=== PATIENT | female | born 1940 | race Caucasian/White ===

== ENCOUNTER 2017-11-30 07:53 | Inpatient (IN) | payer MEDICARE ==
[2017-11-30] MEDS ORDERED: Piperacillin/Tazobactam 4.5 GM in Sodium Chloride 0.9% 100 ML IV ONE (08:31)
--- NOTE | 2017-11-30 08:41 | EDM.PDOC ---
ED HPI GENERAL MEDICAL PROBLEM - General Chief Complaint: Bite:Animal, Insect Stated Complaint: CAT BITE L ARM Time Seen by Provider: 11/30/17 08:08 Source of Information: Reports: Patient, Family () History Limitations: Reports: No Limitations - History of Present Illness INITIAL COMMENTS - FREE TEXT/NARRATIVE: The patient states that she was bitten on her left forearm by her cat in the automobile locator of , 11/28/2017. She was seen at the walk-in clinic yesterday morning around 10AM. The area of erythema around the Bite was pen demarcated. She received a tetanus vaccination and a prescription for oral doxycycline. She started the doxycycline around 13:00, and took her third dose this morning. Doxycycline was chosen because the patient sustained a cat bite to her right hand in 2011. At that time, she was started on oral Augmentin, but, according to the patient (medical records from that incident are not available to us at this time), the patient developed cholestatic jaundice and required hospitalization. She does not know what IV antibiotic she received during her hospitalization. The patient now presents because the swelling and erythema has extended beyond the area of the pen demarcation. The patient denies recent fever. While the wound is painful, there has not been any purulent drainage. The patient's PCP is Tran Gomes. Left Arm Pain Score (Numeric/FACES): 4 - Related Data Allergies Allergy/AdvReac Type Severity Reaction Status Date / Time bacitracin Allergy Cannot Verified 11/30/17 08:06 Remember brimonidine [From Alphagan P] Allergy Cardiac Verified 11/30/17 08:06 Arrest latex Allergy Itching Verified 11/30/17 08:06 neomycin Allergy Cannot Verified 11/30/17 08:06 [From Neosporin Remember ([id number])] polymyxin B Allergy Cannot Verified 11/30/17 08:06 [From Neosporin Remember ([id number])] Sulfa (Sulfonamide Allergy Itching Verified 11/30/17 08:06 Antibiotics) amoxicillin trihydrate AdvReac Liver Verified 11/30/17 08:06 [From Augmentin] Problems atorvastatin calcium AdvReac Muscle Verified 11/30/17 08:06 [From Lipitor] Aches potassium clavulanate AdvReac Liver Verified 11/30/17 08:06 [From Augmentin] Problems Home Meds: Home Meds Cholecalciferol (Vitamin D3) [Vitamin D3] 2,000 unit PO DAILY 07/31/16 [History] Levothyroxine Sodium 75 mcg PO DAILY 07/31/16 [History] Ubidecarenone/Vitamin E [Co Q-10 50 MG Softgel] 1 each PO DAILY 07/31/16 [ History] Verapamil [Calan SR] 120 mg PO DAILY 07/31/16 [History] Tiotropium [place] [Spiriva Respimat] 1 inh INH DAILY 10/22/16 [History] Aspirin [Ecotrin] 81 mg PO DAILY 11/30/17 [History] Denosumab [Prolia] 60 mg SQ ASDIRECTED 11/30/17 [History] Doxycycline Monohydrate 100 mg PO BID 11/30/17 [History] Montelukast [Singulair] 10 mg PO BEDTIME PRN 11/30/17 [History] Rosuvastatin Calcium 10 mg PO BEDTIME 11/30/17 [History] Vit C/E/Zinc/Lutein/Zeaxanthin [[employer] Eye Health Gummies] 1 tab.chew PO DAILY 11/30/17 [History] Past Medical History HEENT History: Reports: Impaired Vision Other HEENT History: wears eyeglasses. 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: Musculoskeletal History: Reports: Fracture (left wrist) Psychiatric History: Reports: Anxiety, Depression Endocrine/Metabolic History: Reports: Hypothyroidism, Vitamin D Deficiency - Past Surgical History HEENT Surgical History: Reports: Cataract Surgery (1993) Female Surgical History: Reports: Hysterectomy (1970) Musculoskeletal Surgical History: Reports: ORIF (left wrist), Other (See Below) (Right hand tendon repair x 4) Dermatological Surgical History: Reports: Other (See Below) Social & Family History - Family History Family Medical History: Noncontributory - Tobacco Use Smoking Status *Q: Former Smoker Years of Tobacco use: 44 Packs/Tins Daily: 0.5 Month/Year Tobacco Last Used: Quit 2005 - Caffeine Use Caffeine Use: Reports: None - Alcohol Use Alcohol Use History: Yes Alcohol Use Frequency: Socially - Recreational Drug Use Recreational Drug Use: No - Living Situation & Occupation Living situation: Reports: , with Spouse Occupation: Employed (Part-time) ED ROS GENERAL - Review of Systems Review Of Systems: ROS reveals no pertinent complaints other than HPI. ED EXAM, ANIMAL BITE - Physical Exam Exam: See Below Exam Limited By: No Limitations General Appearance: Alert, WD/WN, No Apparent Distress Extremities: Other (There is an area of rubor, tumor, and calor with associated dolor measuring approximately 11 cm wide and 9 cm in length over the dorsal aspect of the distal left forearm. Within the area of erythema/swelling, there are 2 puncture red consistent with a cat bite. No fluctuance to the area, and no purulence expressed with palpation.) Course - Vital Signs Last Recorded V/S: Last Vital Signs Temp 37.5 C 11/30/17 17:41 Pulse 65 11/30/17 17:33 Resp 20 11/30/17 17:33 BP 142/66 H 11/30/17 17:33 Pulse Ox 94 L 11/30/17 17:33 - Orders/Labs/Meds Orders: Medication Orders Acetaminophen (Tylenol) 650 mg PO Q6H PRN PRN Reason: Pain/Fever Aspirin (Halfprin) 81 mg PO DAILY [facility] Last Admin: 11/30/17 13:54 Dose: 81 mg Enoxaparin Sodium (Lovenox) 30 mg SUBCUT Q24H [facility] Piperacillin Sod/Tazobactam (Sod 4.5 gm/ Sodium Chloride) 100 mls @ 25 mls/hr IV Q6H [facility] Last Admin: 11/30/17 17:25 Dose: 25 mls/hr Levothyroxine Sodium (Levothyroxine) 75 mcg PO DAILY@0600 BRENDA Montelukast Sodium (Singulair) 10 mg PO BEDTIME PRN PRN Reason: Allergies Rosuvastatin Calcium (Crestor) 10 mg PO BEDTIME BRENDA Temazepam (Restoril) 7.5 mg PO BEDTIME PRN PRN Reason: Insomnia Tiotropium [place] (Spiriva Handihaler) 18 mcg INH DAILYRT BRENDA Verapamil HCl (Calan Sr) 120 mg PO DAILY [facility] Last Admin: 11/30/17 13:33 Dose: Meds: Medications Generic Name Dose Route Start Last Admin Trade Name Freq PRN Reason Stop Dose Admin Acetaminophen 650 mg 11/30/17 17:54 Tylenol PO Q6H PRN Pain/Fever Aspirin 81 mg 11/30/17 11:15 11/30/17 13:54 Halfprin PO 81 mg DAILY BRENDA Administration Enoxaparin Sodium 30 mg 12/01/17 09:00 Lovenox SUBCUT Q24H BRENAD Piperacillin Sod/Tazobactam 100 mls @ 25 mls/hr 11/30/17 17:00 11/30/17 17:25 Sod 4.5 gm/ Sodium Chloride IV 25 mls/hr Q6H BRENDA Administration Levothyroxine Sodium 75 mcg 12/01/17 06:00 Levothyroxine PO DAILY@0600 BRENDA Montelukast Sodium 10 mg 11/30/17 11:03 Singulair PO BEDTIME PRN Allergies Rosuvastatin Calcium 10 mg 11/30/17 21:00 Crestor PO BEDTIME BRENDA Temazepam 7.5 mg 11/30/17 17:54 Restoril PO BEDTIME PRN Insomnia Tiotropium [place] 18 mcg 12/01/17 08:00 Spiriva Handihaler INH DAILYRT BRENDA Verapamil HCl 120 mg 11/30/17 13:00 11/30/17 13:33 Calan Sr PO Not Given DAILY BRENDA Discontinued Medications Generic Name Dose Route Start Last Admin Trade Name Freq PRN Reason Stop Dose Admin Piperacillin Sod/Tazobactam 100 mls @ 200 mls/hr 11/30/17 08:31 11/30/17 08: 50 Sod 4.5 gm/ Sodium Chloride IV 11/30/17 09:00 200 mls/hr ONETIME ONE Administration - Re-Assessments/Exams Free Text/Narrative Re-Assessment/Exam: 11/30/17 08:34 While doxycycline it is an appropriate choice for the treatment of a cat bite, the severity of the infection at this point is, in my opinion, too severe to trust an oral antibiotic alone. I am recommending that she be admitted to the hospital for IV antibiotics until such time that there is demonstrable improvement in the infection, at which time she could then be switched back to oral doxycycline. The patient is agreeable. Case discussed with Dr. Littlejohn at 08:26. She agrees to admit the patient to telemetry. She asked that I call the surgeon, Dr. Montejo, to have her consult the patient early, so that she can watch the progress. Case then discussed with Dr. Montejo. She agreed, and will see the patient this morning. I have ordered Zosyn 4.5 g IV - cholestatic jaundice is not a listed potential adverse reaction. Current guidelines recommend 3.375 g Q 6 to 8 hours - only the 4.5 g dose is available to me at this time. Departure - Departure Time of Disposition: 08:35 Disposition: Admitted As Inpatient 68 Condition: Good Clinical Impression: Cat bite of left forearm with infection - Discharge Information
[2017-11-30] MEDS ORDERED: Montelukast 10 MG Tab PO PRN (11:03)
[2017-11-30] MEDS: Verapamil 120 MG Tab.ER PO SCH (13:33)
[2017-11-30] MEDS: Aspirin 81 MG Tab.EC PO SCH (13:54)
[2017-11-30] MEDS: Piperacillin/Tazobactam 4.5 GM in Sodium Chloride 0.9% 100 ML IV SCH ×2 (17:25→23:04)
--- NOTE | 2017-11-30 17:48 | PCM.HP ---
H&P History of Present Illness - General Date of Service: 11/30/17 Admit Problem/Dx: Admission Diagnosis/Problem Admission Diagnosis/Problem Cellulitis Source of Information: Patient, Provider History Limitations: Reports: No Limitations - History of Present Illness Initial Comments - Free Text/Narative: 77 year old female who was bitten by her cat, had been seen on , the day of the incidence. She denies fever or chills, there is swelling erythema and mild discomfort. She had been seen in the walk in clinic and started on Doxycycline but has failed outpatient therapy. The patient has received one dose of Zosyn, and will be admitted. A general surgery consult has been made for compartment syndrome. Onset of Symptoms: Reports: Gradual Symptom Onset Date: 11/28/17 Duration of Symptoms: Reports: Day(s):, Getting Worse Location: Reports: Lower Extremity, Left Quality: Reports: Throbbing Severity: Moderate Improves with: Reports: Medication Worsens with: Reports: None Context: Reports: Other (animal bite) Associated Symptoms: Reports: Weakness Left Arm Pain Score (Numeric/FACES): 1 - Related Data Allergies/Adverse Reactions: Allergies Allergy/AdvReac Type Severity Reaction Status Date / Time bacitracin Allergy Cannot Verified 11/30/17 08:06 Remember brimonidine [From Alphagan P] Allergy Cardiac Verified 11/30/17 08:06 Arrest latex Allergy Itching Verified 11/30/17 08:06 neomycin Allergy Cannot Verified 11/30/17 08:06 [From Neosporin Remember ([id number])] polymyxin B Allergy Cannot Verified 11/30/17 08:06 [From Neosporin Remember ([id number])] Sulfa (Sulfonamide Allergy Itching Verified 11/30/17 08:06 Antibiotics) amoxicillin trihydrate AdvReac Liver Verified 11/30/17 08:06 [From Augmentin] Problems atorvastatin calcium AdvReac Muscle Verified 11/30/17 08:06 [From Lipitor] Aches potassium clavulanate AdvReac Liver Verified 11/30/17 08:06 [From Augmentin] Problems Home Medications: Home Meds Cholecalciferol (Vitamin D3) [Vitamin D3] 2,000 unit PO DAILY 07/31/16 [History] Levothyroxine Sodium 75 mcg PO DAILY 07/31/16 [History] Ubidecarenone/Vitamin E [Co Q-10 50 MG Softgel] 1 each PO DAILY 07/31/16 [ History] Verapamil [Calan SR] 120 mg PO DAILY 07/31/16 [History] Tiotropium [place] [Spiriva Respimat] 1 inh INH DAILY 10/22/16 [History] Aspirin [Ecotrin] 81 mg PO DAILY 11/30/17 [History] Denosumab [Prolia] 60 mg SQ ASDIRECTED 11/30/17 [History] Doxycycline Monohydrate 100 mg PO BID 11/30/17 [History] Montelukast [Singulair] 10 mg PO BEDTIME PRN 11/30/17 [History] Rosuvastatin Calcium 10 mg PO BEDTIME 11/30/17 [History] Vit C/E/Zinc/Lutein/Zeaxanthin [[employer] Eye Health Gummies] 1 tab.chew PO DAILY 11/30/17 [History] Past Medical History HEENT History: Reports: Impaired Vision Other HEENT History: wears eyeglasses. 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 Dermatological Surgical History: Reports: Other (See Below) Social & Family History - Family History Family Medical History: Noncontributory - Tobacco Use Smoking Status *Q: Former Smoker Years of Tobacco use: 40 Packs/Tins Daily: 1 Used Tobacco, but Quit: Yes Month/Year Tobacco Last Used: 1999 Second Hand Smoke Exposure: No - Caffeine Use Caffeine Use: Reports: Coffee, Tea - Alcohol Use Days Per Week of Alcohol Use: 1 Number of Drinks Per Day: 1 Total Drinks Per Week: 1 - Recreational Drug Use Recreational Drug Use: No - Living Situation & Occupation Living situation: Reports: , with Spouse Occupation: Employed (Part-time) H&P Review of Systems - Review of Systems: Review Of Systems: See Below General: Reports: Malaise, Weakness HEENT: Reports: No Symptoms Pulmonary: Reports: No Symptoms Cardiovascular: Reports: No Symptoms Gastrointestinal: Reports: No Symptoms Genitourinary: Reports: No Symptoms Musculoskeletal: Reports: Arm Pain (left forearm) Skin: Reports: Erythema, Wound (bite), Change in Color, Other (edema) Psychiatric: Reports: No Symptoms Neurological: Reports: No Symptoms Hematologic/Lymphatic: Reports: No Symptoms Immunologic: Reports: No Symptoms Exam - Exam Exam: See Below - Vital Signs Vital Signs: Last Vital Signs Temp 37.5 C 11/30/17 17:41 Pulse 65 11/30/17 17:33 Resp 20 11/30/17 17:33 BP 142/66 H 11/30/17 17:33 Pulse Ox 94 L 11/30/17 17:33 Weight: 51.483 kg - Exam Quality Assessment: DVT Prophylaxis General: Alert, Oriented, Cooperative HEENT: Conjunctiva Clear, Nares Patent, Normal Nasal Septum, Pupils Equal, Pupils Reactive, PERRLA Neck: Supple, Trachea Midline Lungs: Clear to Auscultation, Normal Respiratory Effort Cardiovascular: Regular Rate, Regular Rhythm GI/Abdominal Exam: Normal Bowel Sounds, Soft, Non-Tender, No Organomegaly, No Distention (Female) Exam: Deferred Rectal (Female) Exam: Deferred Back Exam: Normal Inspection Extremities: Normal Inspection, Non-Tender, Normal Capillary Refill Skin: Warm Neurological: Cranial Nerves Intact, Reflexes Equal Bilateral, Normal Gait, Normal Speech Neuro Extensive - Mental Status: Alert, Oriented x3, Normal Mood/Affect, Normal Cognition, Memory Intact Neuro Extensive - Motor, Sensory, Reflexes: CN II-XII Intact, Normal Gait Psychiatric: Alert, Normal Affect, Normal Mood - Problem List (1) Cat bite of left forearm with infection SNOMED Code(s): 862854931 ICD Code: S51.852A - OPEN BITE OF LEFT FOREARM, INITIAL ENCOUNTER; L08.9 - LOCAL INFECTION OF THE SKIN AND SUBCUTANEOUS TISSUE, UNSP; W55.01XA - BITTEN BY CAT, INITIAL ENCOUNTER Status: Acute Current Visit: No Problem List Initiated/Reviewed/Updated: Yes Orders Last 24hrs: Active Orders 24 hr Category Date Time Status Admission Status [Patient Status] [ADT] Routine ADT 11/30/17 10:43 Active Heart Healthy Diet [DIET] Diet 11/30/17 Dinner Active Aspirin [Halfprin] Med 11/30/17 11:15 Active 81 mg PO DAILY Levothyroxine Med 12/01/17 06:00 Active 75 mcg PO DAILY@0600 Montelukast [Singulair] Med 11/30/17 11:03 Active 10 mg PO BEDTIME PRN Piperacillin/Tazobactam [Zosyn] 4.5 gm Med 11/30/17 17:00 Active Sodium Chloride 0.9% [Normal Saline] 100 ml IV Q6H Rosuvastatin [Crestor] Med 11/30/17 21:00 Active 10 mg PO BEDTIME Tiotropium [Spiriva HandiHaler] Med 12/01/17 08:00 Active 18 mcg INH DAILYRT Verapamil [Calan SR] Med 11/30/17 13:00 Active 120 mg PO DAILY Resuscitation Status Routine Resus Stat 11/30/17 13:46 Ordered Medication Orders Aspirin (Halfprin) 81 mg PO DAILY [facility] Last Admin: 11/30/17 13:54 Dose: 81 mg Piperacillin Sod/Tazobactam (Sod 4.5 gm/ Sodium Chloride) 100 mls @ 25 mls/hr IV Q6H BRENDA Last Admin: 11/30/17 17:25 Dose: 25 mls/hr Levothyroxine Sodium (Levothyroxine) 75 mcg PO DAILY@0600 BRENDA Montelukast Sodium (Singulair) 10 mg PO BEDTIME PRN PRN Reason: Allergies Rosuvastatin Calcium (Crestor) 10 mg PO BEDTIME BRENDA Tiotropium [place] (Spiriva Handihaler) 18 mcg INH DAILYRT BRENDA Verapamil HCl (Calan Sr) 120 mg PO DAILY BRENDA Last Admin: 11/30/17 13:33 Dose: Assessment/Plan Comment:: Impression: Trauma-->s/p cat bite, family cat No signs of compartment syndrome, started on Zosyn Augmentin complication per patient cholestatic jaundice Chronic HTBN HLD COPD Anxiety/Depression Hypothyroidism Vitamin D deficiency Plan: General surgery consult Continue Zosyn Elevate LUE Pain meds as needed IVF DVT prophylaxis DC 24-48 hours
[2017-11-30] MEDS ORDERED: Temazepam 7.5 MG Cap PO PRN (17:54)
--- NOTE | 2017-11-30 18:00 | CONS ---
CONSULTING PHYSICIAN: Rosalba Montejo MD DATE OF CONSULTATION: 11/30/2017 CHIEF COMPLAINT: Left forearm cat bite. HISTORY OF PRESENT ILLNESS: Fabi Cabrera is just a pleasant 77-year-old female; yesterday in the middle of the night, her cat was frightened and subsequently jumped and bit her on the left forearm. She had initially discomfort but then started noticing some redness. She was subsequently seen as an outpatient, antibiotics and tetanus were given. Over the course of the last several hours, however, the swelling increased. She denies any fevers or chills and she denies any decrease in her range of motion or pain with range of motion of her elbow, wrist, or fingers. She states she can move it well. It is just that the redness that is increased. PAST MEDICAL HISTORY: Significant in her past medical history, she has also had a previous cat bite that was many years ago, on her right arm, which required multiple debridements. ALLERGIES: Latex and Augmentin. The Augmentin was noted when she was treated for the other cat bite because it gave her cholestatic jaundice from what we could tell. SOCIAL HISTORY: Smoking: She quit many years ago. Alcohol: Rare. She is . She has 2 children alive and well. PAST SURGICAL HISTORY: Hysterectomy and she has had cataracts and she had the right arm reconstruction. REVIEW OF SYSTEMS: No history of seizures or strokes. No history of blurred or double vision. No history of shortness of breath or chest pain. No history of abdominal pain or tenderness or nausea or vomiting. No history of blood in her urine or any other joint pain or tenderness. MEDICATIONS: Her medications, I did review, and they are on her chart. PHYSICAL EXAMINATION: GENERAL: This is a very young appearing 77-year-old female. HEENT: Pupils are equal. NECK: Without mass. LUNGS: Clear. HEART: Rhythm is regular. EXTREMITIES: On her left forearm is an area that has been marked. There are 3 little puncture wounds noted. There is no subcutaneous air and there is full range of motion of her elbow, wrist, and her fingers. There is no active drainage. There is some swelling but it appears to be superficial. The areas where the entrance of the teeth are with a small amount of necrosis, probably about 0.2 mm. IMPRESSION AND PLAN: She has localized cellulitis from the cat bite. I concur that at this point in time, we can simply start IV antibiotics and watch this closely. If indeed the cellulitis does not respond, I would then have to reassess for possible drainage and debridement. There are no signs of tendon involvement and there are no signs of compartment syndrome at this point in time. The patient is pleased with this and will continue with warm packs, elevation, and antibiotics. The total time of this consultation with the patient and with the chart review was probably about 28 minutes. I have also discussed with Dr. Littlejohn, our plan and she concurs. MMODAL /[id number]
[2017-11-30] MEDS: Rosuvastatin 10 MG Tab PO SCH (20:46)
[2017-12-01] MEDS: Levothyroxine 75 MCG Tab PO SCH (06:36)
[2017-12-01] MEDS ORDERED: Magnesium Sulfate/Water 2 GM in Premix Bag 1 BAG IV ONE (07:42)
--- NOTE | 2017-12-01 08:27 | PCM.PN ---
- General Info Date of Service: 12/01/17 Admission Dx/Problem (Free Text): Admission Diagnosis/Problem Admission Diagnosis/Problem Cellulitis Subjective Update: Follow Up Functional Status: Reports: Pain Controlled, Tolerating Diet, Ambulating, Urinating. Denies: New Symptoms - Review of Systems General: Denies: Fever, Weakness, Fatigue, Malaise, Chills HEENT: Reports: Headaches (early this morning but went away) Pulmonary: Reports: No Symptoms Cardiovascular: Reports: No Symptoms Gastrointestinal: Denies: Abdominal Pain, Constipation, Diarrhea, Nausea, Vomiting Genitourinary: Reports: No Symptoms Musculoskeletal: Reports: No Symptoms Skin: Reports: Other (lesions on arm: continue to improve per patient). Denies : Cyanosis, Mottled, Diaphoresis, Rash Neurological: Denies: Confusion, Difficulty Walking, Weakness, Gait Disturbance Psychiatric: Denies: Depression, Anxiety, Agitation, Hallucinations Systems Review Comment:: No overnight or acute issues. She slept pretty good. She has a headache this am but went away. She has no new complaints. - Patient Data Vitals - Most Recent: Last Vital Signs Temp 36.7 C 12/01/17 03:40 Pulse 62 12/01/17 03:40 Resp 16 12/01/17 03:40 BP 112/61 12/01/17 03:40 Pulse Ox 92 L 12/01/17 03:40 Weight - Most Recent: 50.893 kg I&O - Last 24 Hours: Intake & Output 11/30/17 12/01/17 12/01/17 22:59 06:59 14:59 Intake Total 860 500 Output Total 200 450 Balance 660 50 Lab Results Last 24 Hours: Laboratory Results - last 24 hr 11/30/17 11/30/17 12/01/17 Range/Units 20:00 20:00 06:05 WBC 9.13 7.48 (3.98-10.04) K/mm3 RBC 4.68 4.67 (3.98-5.22) M/mm3 Hgb 14.4 14.6 (11.2-15.7) gm/L Hct 43.2 43.0 (34.1-44.9) % MCV 92.3 92.1 (79.4-94.8) fl MCH 30.8 31.3 (25.6-32.2) pg MCHC 33.3 34.0 (32.2-35.5) g/dl RDW Std Deviation 44.6 44.6 (36.4-46.3) fL Plt Count 289 304 (182-369) K/mm3 MPV 8.6 L 9.0 L (9.4-12.3) fl Neut % (Auto) 68.6 69.9 (34.0-71.1) % Lymph % (Auto) 20.8 19.0 L (19.3-51.7) % [place] % (Auto) 8.7 9.0 (4.7-12.5) % Eos % (Auto) 1.4 1.7 (0.7-5.8) Baso % (Auto) 0.4 0.3 (0.1-1.2) % Neut # (Auto) 6.26 H 5.23 (1.56-6.13) K/mm3 Lymph # (Auto) 1.90 1.42 (1.18-3.74) K/mm3 [place] # (Auto) 0.79 H 0.67 H (0.24-0.36) K/mm3 Eos # (Auto) 0.13 0.13 (0.04-0.36) K/mm3 Baso # (Auto) 0.04 0.02 (0.01-0.08) K/mm3 Sodium 142 (136-145) mEq/L Potassium 3.9 (3.5-5.1) mEq/L Chloride 108 H (98-107) mEq/L Carbon Dioxide 25 (21-32) mEq/L Anion Gap 12.9 (5-15) BUN 16 (7-18) mg/dL Creatinine 0.8 (0.55-1.02) mg/dL Est Cr Clr Drug Dosing 48.06 mL/min Estimated GFR (MDRD) > 60 (>60) mL/min BUN/Creatinine Ratio 20.0 H (14-18) Glucose 132 H (83-115) mg/dL Lactic Acid (0.4-2.0) mmol/L Calcium 9.0 (8.5-10.1) mg/dL Magnesium (1.8-2.4) mg/dl C-Reactive Protein (<1.0) mg/dL 12/01/17 12/01/17 Range/Units 06:05 06:05 WBC (3.98-10.04) K/mm3 RBC (3.98-5.22) M/mm3 Hgb (11.2-15.7) gm/L Hct (34.1-44.9) % MCV (79.4-94.8) fl MCH (25.6-32.2) pg MCHC (32.2-35.5) g/dl RDW Std Deviation (36.4-46.3) fL Plt Count (182-369) K/mm3 MPV (9.4-12.3) fl Neut % (Auto) (34.0-71.1) % Lymph % (Auto) (19.3-51.7) % [place] % (Auto) (4.7-12.5) % Eos % (Auto) (0.7-5.8) Baso % (Auto) (0.1-1.2) % Neut # (Auto) (1.56-6.13) K/mm3 Lymph # (Auto) (1.18-3.74) K/mm3 [place] # (Auto) (0.24-0.36) K/mm3 Eos # (Auto) (0.04-0.36) K/mm3 Baso # (Auto) (0.01-0.08) K/mm3 Sodium 140 (136-145) mEq/L Potassium 3.7 (3.5-5.1) mEq/L Chloride 104 (98-107) mEq/L Carbon Dioxide 26 (21-32) mEq/L Anion Gap 13.7 (5-15) BUN 15 (7-18) mg/dL Creatinine 0.8 (0.55-1.02) mg/dL Est Cr Clr Drug Dosing 48.06 mL/min Estimated GFR (MDRD) > 60 (>60) mL/min BUN/Creatinine Ratio 18.8 H (14-18) Glucose 91 (83-115) mg/dL Lactic Acid 0.7 (0.4-2.0) mmol/L Calcium 8.5 (8.5-10.1) mg/dL Magnesium 1.6 L (1.8-2.4) mg/dl C-Reactive Protein 0.6 (<1.0) mg/dL Med Orders - Current: Current Medications Acetaminophen (Tylenol) 650 mg PO Q6H PRN PRN Reason: Pain/Fever Aspirin (Halfprin) 81 mg PO DAILY [facility] Last Admin: 11/30/17 13:54 Dose: 81 mg Enoxaparin Sodium (Lovenox) 30 mg SUBCUT Q24H [facility] Piperacillin Sod/Tazobactam (Sod 4.5 gm/ Sodium Chloride) 100 mls @ 25 mls/hr IV Q8H [facility] Magnesium Sulfate 2 gm/ Premix 50 mls @ 25 mls/hr IV ONETIME ONE Stop: 12/01/17 09:41 Levothyroxine Sodium (Levothyroxine) 75 mcg PO DAILY@0600 [facility] Last Admin: 12/01/17 06:36 Dose: 75 mcg Montelukast Sodium (Singulair) 10 mg PO BEDTIME PRN PRN Reason: Allergies Rosuvastatin Calcium (Crestor) 10 mg PO BEDTIME [facility] Last Admin: 11/30/17 20:46 Dose: 10 mg Temazepam (Restoril) 7.5 mg PO BEDTIME PRN PRN Reason: Insomnia Tiotropium [place] (Spiriva Handihaler) 18 mcg INH DAILYRT [facility] Verapamil HCl (Calan Sr) 120 mg PO DAILY [facility] Last Admin: 11/30/17 13:33 Dose: Not Given Discontinued Medications Piperacillin Sod/Tazobactam (Sod 4.5 gm/ Sodium Chloride) 100 mls @ 200 mls/hr IV ONETIME ONE Stop: 11/30/17 09:00 Last Admin: 11/30/17 08:50 Dose: 200 mls/hr Piperacillin Sod/Tazobactam (Sod 4.5 gm/ Sodium Chloride) 100 mls @ 25 mls/hr IV Q6H [facility] Last Admin: 11/30/17 23:04 Dose: 25 mls/hr - Exam General: Alert, Oriented, Cooperative, No Acute Distress HEENT: Pupils Equal, Pupils Reactive, EOMI, Mucous Membr. Moist/[place] Neck: Supple, Trachea Midline Lungs: Clear to Auscultation, Normal Respiratory Effort Cardiovascular: Regular Rate, Regular Rhythm GI/Abdominal Exam: Normal Bowel Sounds, Soft, Non-Tender, No Organomegaly, No Distention, No Abnormal Bruit (Female) Exam: Deferred Back Exam: Normal Inspection, Full Range of Motion Extremities: Normal Inspection, Normal Range of Motion, Non-Tender, No Pedal Edema, Normal Capillary Refill Peripheral Pulses: 2+: Dorsalis Pedis (L), Dorsalis Pedis (R) Skin: Warm, Dry, Intact Wound/Incisions: Healing Well, No Drainage, Erythema Improving Neurological: No New Focal Deficit Psy/Mental Status: Alert, Normal Affect, Normal Mood - Problem List Review Problem List Initiated/Reviewed/Updated: Yes - Plan Plan:: Assessment/Plan: Acute: SST/Cellulitis, Continues to Improve - 2/2 Cat bite, family cat - Cat up-to-date with vaccines - Per patient she received tetanus shot at the clinic - Was treated with Augmentin but developed cholestatic jaundice - She is responding to IV Zosyn - Dr. Montejo following; she okayed d/c in AM continue home dose doxycycline Hypomagnesemia - Mg 1.6 - 2.2 inadequate intake - Replete and monitor Chronic: HTN HLD COPD Anxiety/Depression Hypothyroidism Vitamin D deficiency Plan: She remains clinically stable Continue current treatment Probiotic if she is not on it Dr. Montejo following Pain meds as needed DVT prophylaxis: SCDs D/C in AM
[2017-12-01] MEDS: Piperacillin/Tazobactam 4.5 GM in Sodium Chloride 0.9% 100 ML IV SCH ×2 (08:43→15:30)
[2017-12-01] MEDS: Aspirin 81 MG Tab.EC PO SCH (08:45)
[2017-12-01] MEDS: Verapamil 120 MG Tab.ER PO SCH (08:45)
[2017-12-01] MEDS ORDERED: Enoxaparin 30 MG/0.3 ML Syringe SUBCUT SCH (09:00)
[2017-12-01] MEDS: Tiotropium Inhaler 18 MCG Inhalation Powder Cap Kit of 5 INH SCH (09:07)
--- NOTE | 2017-12-01 12:38 | PN ---
DATE OF SERVICE: 12/01/2017 This is a surgical followup. SUBJECTIVE: She is now post 24 hours of IV antibiotics status post cat bite to the left forearm. She states she feels much better and has very little pain if any. She has remained afebrile. OBJECTIVE: The cellulitis of the left forearm has significantly decreased. You can actually see wrinkling of the skin. There are 2 areas where the entrance of the tooth of the cat, shows that there might be just a little purulence or little drainage starting, but this is not clinically obvious at this time. IMPRESSION: She continues to respond to the IV antibiotics for the cellulitis status post cat bite. I would recommend that she continue with antibiotics and local care only. PLAN: I explained to the patient that, perhaps at the 2 entrance sites of the teeth, there may be a little tiny abscess formation forming and if so, that should be just drained with just a little pressure. Otherwise, I see that she has steadily improved. There is no need for surgical debridement, and there are no signs of need for surgery at this time. Total time was less than 15 minutes. It was brief. MMODAL /[id number]
[2017-12-01] MEDS: Acetaminophen 325 MG Tab PO PRN ×2 (15:34→21:09)
[2017-12-01] MEDS: Rosuvastatin 10 MG Tab PO SCH (19:44)
[2017-12-02] MEDS: Rosuvastatin 10 MG Tab PO SCH (01:37)
[2017-12-02] MEDS: Piperacillin/Tazobactam 4.5 GM in Sodium Chloride 0.9% 100 ML IV SCH ×2 (01:43→08:15)
[2017-12-02] MEDS: Levothyroxine 75 MCG Tab PO SCH (06:09)
--- NOTE | 2017-12-02 07:16 | PCM.DCSUM1 ---
Discharge Summary - Hospital Course Brief History: 77 year old female who was bitten by her cat, had been seen on , 11/28/17 the day of the incidence. She denies fever or chills, there is swelling erythema and mild discomfort. She had been seen in the walk in clinic and started on Doxycycline but has failed outpatient therapy. The patient had received one dose of Zosyn and was admitted for inpatient management. - Discharge Data Discharge Date: 12/02/17 Discharge Disposition: Home, Self-Care 01 Condition: Good - Discharge Diagnosis/Problem(s) (1) Cat bite of left forearm with infection SNOMED Code(s): 432642480 ICD Code: S51.852A - OPEN BITE OF LEFT FOREARM, INITIAL ENCOUNTER; L08.9 - LOCAL INFECTION OF THE SKIN AND SUBCUTANEOUS TISSUE, UNSP; W55.01XA - BITTEN BY CAT, INITIAL ENCOUNTER Status: Acute Qualifiers: Encounter type: subsequent encounter Qualified Code(s): S51.852D - Open bite of left forearm, subsequent encounter; L08.9 - Local infection of the skin and subcutaneous tissue, unspecified; W55.01XD - Bitten by cat, subsequent encounter (2) Hypomagnesemia SNOMED Code(s): 305346948 ICD Code: E83.42 - HYPOMAGNESEMIA Status: Acute - Patient Summary/Data Operative Procedure(s) Performed: None Complications: None Consults: Dr. Montejo Labs Pending at D/C: None Recommended Follow-up Testing/Procedures: None Planned Operative Procedure(s) after DC: None Hospital Course: Patient was primarily admitted for medical management of cellulitis/ssti 2/2 cat bite. She was initially treated but failed outpatient treatment. Therefore, she presented to the hospital for inpatient treatment. Patient received intravenous antibiotic and supportive care during this admission. Slowly, she improved on this regimen. Dr. Montejo was consulted for surgical evaluation but recommended no additional testing or invasive treatment. Her hospital course was uncomplicated and the rest of her chronic medical illness remained stable. Once medically stable, she was discharged home to continue with her home doxycycline regimen. She was advised to follow up or call her PCP for any questions or concerns after discharge. She was further advised to come back or seek immediate care should her symptoms persist or get worse. Patient expressed understanding and in agreement with the plans as discussed above. All questions were answered. - Patient Instructions Diet: Usual Diet as Tolerated Activity: As Tolerated Driving: May Drive Today Showering/Bathing: May Shower Wound/Incision Care: Keep Operative Site/Wound Site Clean and Dry Notify Provider of: Fever, Increased Pain, Swelling and Redness, Drainage, Nausea and/or Vomiting Other/Special Instructions: - Please take new medication as directed. - Resume all home medications. - Continue routine home activities as tolerated. - Call your family doctor for any questions or concerns after discharge. - Follow up with PCP and General Surgery in 1-2 week. - Come back or seek immediate care should your symptoms persist or get worse - Discharge Plan Prescriptions/Med Rec: Saccharomyces Boulardii [Florastor] 250 mg PO BID #30 cap Home Medications: Home Meds Cholecalciferol (Vitamin D3) [Vitamin D3] 2,000 unit PO DAILY 07/31/16 [History] Levothyroxine Sodium 75 mcg PO DAILY 07/31/16 [History] Ubidecarenone/Vitamin E [Co Q-10 50 MG Softgel] 1 each PO DAILY 07/31/16 [ History] Verapamil [Calan SR] 120 mg PO DAILY 07/31/16 [History] Tiotropium [place] [Spiriva Respimat] 1 inh INH DAILY 10/22/16 [History] Aspirin [Ecotrin] 81 mg PO DAILY 11/30/17 [History] Denosumab [Prolia] 60 mg SQ ASDIRECTED 11/30/17 [History] Doxycycline Monohydrate 100 mg PO BID 11/30/17 [History] Montelukast [Singulair] 10 mg PO BEDTIME PRN 11/30/17 [History] Rosuvastatin Calcium 10 mg PO BEDTIME 11/30/17 [History] Vit C/E/Zinc/Lutein/Zeaxanthin [Ocuvite Eye Health Gummies] 1 tab.chew PO DAILY 11/30/17 [History] Saccharomyces Boulardii [Florastor] 250 mg PO BID #30 cap 12/02/17 [Rx] Patient Handouts: Cellulitis, Adult, Hypomagnesemia Referrals: Leti Gomes NP [Primary Care Provider] - 12/11/17 7:45 am (Please follow- up with your primary care doctor, Dr. Leti Gomes, on SaturdayDecember 11 at 0745am. ) - Discharge Summary/Plan Comment DC Time >30 min.: Yes (45 mins) Discharge Summary/Plan Comment: Discharge to Home - General Info Date of Service: 12/02/17 Admission Dx/Problem (Free Text: Admission Diagnosis/Problem Admission Diagnosis/Problem Cellulitis Subjective Update: Follow Up Functional Status: Reports: Pain Controlled, Tolerating Diet, Ambulating, Urinating - Review of Systems General: Denies: Fever, Weakness, Fatigue, Malaise, Chills HEENT: Reports: No Symptoms Pulmonary: Denies: Shortness of Breath Cardiovascular: Denies: Chest Pain, Palpitations, Dyspnea on Exertion Gastrointestinal: Denies: Abdominal Pain, Nausea, Vomiting Genitourinary: Reports: No Symptoms Musculoskeletal: Reports: Other (no limitations with ROM). Denies: Arm Pain, Joint Swelling Skin: Denies: Cyanosis, Jaundice, Mottled, Pallor, Diaphoresis, Bruising, Rash Neurological: Denies: Confusion, Difficulty Walking, Weakness, Gait Disturbance Psychiatric: Denies: Depression, Anxiety, Agitation, Hallucinations Systems Review Comment: NO overnight or acute issues. She slept pretty good. She feels good and has no complaints this morning. - Patient Data Vitals - Most Recent: Last Vital Signs Temp 37.7 C 12/01/17 15:17 Pulse 63 12/01/17 15:17 Resp 15 12/01/17 15:17 BP 129/67 12/01/17 15:17 Pulse Ox 93 L 12/01/17 15:17 Weight - Most Recent: 50.893 kg I&O - Last 24 hours: Intake & Output 12/01/17 12/02/17 12/02/17 22:59 06:59 14:59 Intake Total 1340 Output Total 1800 Balance -460 Lab Results - Last 24 hrs: Laboratory Results - last 24 hr 12/01/17 12/01/17 12/02/17 Range/Units 06:05 06:05 05:50 WBC 7.65 (3.98-10.04) K/mm3 RBC 4.90 (3.98-5.22) M/mm3 Hgb 15.0 (11.2-15.7) gm/L Hct 45.2 H (34.1-44.9) % MCV 92.2 (79.4-94.8) fl MCH 30.6 (25.6-32.2) pg MCHC 33.2 (32.2-35.5) g/dl RDW Std Deviation 44.7 (36.4-46.3) fL Plt Count 302 (182-369) K/mm3 MPV 8.9 L (9.4-12.3) fl Neut % (Auto) 71.7 H (34.0-71.1) % Lymph % (Auto) 17.0 L (19.3-51.7) % [place] % (Auto) 8.8 (4.7-12.5) % Eos % (Auto) 2.0 (0.7-5.8) Baso % (Auto) 0.4 (0.1-1.2) % Neut # (Auto) 5.49 (1.56-6.13) K/mm3 Lymph # (Auto) 1.30 (1.18-3.74) K/mm3 [place] # (Auto) 0.67 H (0.24-0.36) K/mm3 Eos # (Auto) 0.15 (0.04-0.36) K/mm3 Baso # (Auto) 0.03 (0.01-0.08) K/mm3 Sodium 140 (136-145) mEq/L Potassium 3.7 (3.5-5.1) mEq/L Chloride 104 (98-107) mEq/L Carbon Dioxide 26 (21-32) mEq/L Anion Gap 13.7 (5-15) BUN 15 (7-18) mg/dL Creatinine 0.8 (0.55-1.02) mg/dL Est Cr Clr Drug Dosing 48.06 mL/min Estimated GFR (MDRD) > 60 (>60) mL/min BUN/Creatinine Ratio 18.8 H (14-18) Glucose 91 (83-115) mg/dL Lactic Acid 0.7 (0.4-2.0) mmol/L Calcium 8.5 (8.5-10.1) mg/dL Magnesium 1.6 L (1.8-2.4) mg/dl C-Reactive Protein 0.6 (<1.0) mg/dL 12/02/17 12/02/17 Range/Units 05:50 05:50 WBC (3.98-10.04) K/mm3 RBC (3.98-5.22) M/mm3 Hgb (11.2-15.7) gm/L Hct (34.1-44.9) % MCV (79.4-94.8) fl MCH (25.6-32.2) pg MCHC (32.2-35.5) g/dl RDW Std Deviation (36.4-46.3) fL Plt Count (182-369) K/mm3 MPV (9.4-12.3) fl Neut % (Auto) (34.0-71.1) % Lymph % (Auto) (19.3-51.7) % [place] % (Auto) (4.7-12.5) % Eos % (Auto) (0.7-5.8) Baso % (Auto) (0.1-1.2) % Neut # (Auto) (1.56-6.13) K/mm3 Lymph # (Auto) (1.18-3.74) K/mm3 [place] # (Auto) (0.24-0.36) K/mm3 Eos # (Auto) (0.04-0.36) K/mm3 Baso # (Auto) (0.01-0.08) K/mm3 Sodium 144 (136-145) mEq/L Potassium 4.1 (3.5-5.1) mEq/L Chloride 107 (98-107) mEq/L Carbon Dioxide 25 (21-32) mEq/L Anion Gap 16.1 H (5-15) BUN 18 (7-18) mg/dL Creatinine 0.8 (0.55-1.02) mg/dL Est Cr Clr Drug Dosing 48.06 mL/min Estimated GFR (MDRD) > 60 (>60) mL/min BUN/Creatinine Ratio 22.5 H (14-18) Glucose 100 (83-115) mg/dL Lactic Acid 0.8 (0.4-2.0) mmol/L Calcium 8.8 (8.5-10.1) mg/dL Magnesium 2.1 (1.8-2.4) mg/dl C-Reactive Protein 0.6 (<1.0) mg/dL Med Orders - Current: Current Medications Acetaminophen (Tylenol) 650 mg PO Q6H PRN PRN Reason: Pain/Fever Last Admin: 12/01/17 21:09 Dose: 650 mg Aspirin (Halfprin) 81 mg PO DAILY [facility] Last Admin: 12/01/17 08:45 Dose: 81 mg Enoxaparin Sodium (Lovenox) 40 mg SUBCUT DAILY [facility] Piperacillin Sod/Tazobactam (Sod 4.5 gm/ Sodium Chloride) 100 mls @ 25 mls/hr IV Q8H [facility] Last Admin: 12/02/17 01:43 Dose: 25 mls/hr Levothyroxine Sodium (Levothyroxine) 75 mcg PO DAILY@0600 [facility] Last Admin: 12/02/17 06:09 Dose: 75 mcg Montelukast Sodium (Singulair) 10 mg PO BEDTIME PRN PRN Reason: Allergies Rosuvastatin Calcium (Crestor) 10 mg PO BEDTIME [facility] Last Admin: 12/02/17 01:37 Dose: Not Given Saccharomyces Boulardii (Florastor) 250 mg PO DAILY [facility] Temazepam (Restoril) 7.5 mg PO BEDTIME PRN PRN Reason: Insomnia Tiotropium [place] ([facility]iva Handihaler[facility] Last Admin: 12/01/17 09:07 Dose: 1 cap Verapamil HCl (Calan Sr) 120 mg PO DAILY [facility] Last Admin: 12/01/17 08:45 Dose: 120 mg Discontinued Medications Enoxaparin Sodium (Lovenox) 30 mg SUBCUT Q24H [facility] Last Admin: 12/01/17 08:46 Dose: 30 mg Piperacillin Sod/Tazobactam (Sod 4.5 gm/ Sodium Chloride) 100 mls @ 200 mls/hr IV ONETIME ONE Stop: 11/30/17 09:00 Last Admin: 11/30/17 08:50 Dose: 200 mls/hr Piperacillin Sod/Tazobactam (Sod 4.5 gm/ Sodium Chloride) 100 mls @ 25 mls/hr IV Q6H [facility] Last Admin: 11/30/17 23:04 Dose: 25 mls/hr Magnesium Sulfate 2 gm/ Premix 50 mls @ 25 mls/hr IV ONETIME ONE Stop: 12/01/17 09:41 Last Admin: 12/01/17 08:43 Dose: 25 mls/hr - Exam General: Reports: Alert, Oriented, Cooperative, No Acute Distress HEENT: Reports: Pupils Equal, Pupils Reactive, EOMI, Mucous Membr. Moist/[place] Neck: Reports: Supple, Trachea Midline, No JVD, No Thyromegaly Lungs: Reports: Clear to Auscultation, Normal Respiratory Effort Cardiovascular: Reports: Regular Rate, Regular Rhythm GI/Abdominal Exam: Normal Bowel Sounds, Soft, Non-Tender, No Organomegaly, No Distention, No Abnormal Bruit (Female) Exam: Deferred Rectal (Female) Exam: Deferred Back Exam: Reports: Normal Inspection, Full Range of Motion Extremities: Normal Inspection, Normal Range of Motion, No Pedal Edema, Normal Capillary Refill Skin: Reports: Warm, Dry, Intact Wound/Incisions: Reports: Healing Well, No Drainage, Erythema (mild ), Other Neurological: Reports: No New Focal Deficit Psy/Mental Status: Reports: Alert, Normal Affect, Normal Mood
[2017-12-02 08:14] VITALS: BP 145/79
[2017-12-02] MEDS: Aspirin 81 MG Tab.EC PO SCH (08:15)
[2017-12-02] MEDS: Verapamil 120 MG Tab.ER PO SCH (08:15)
[2017-12-02] MEDS: Tiotropium Inhaler 18 MCG Inhalation Powder Cap Kit of 5 INH SCH (08:20)
[2017-12-02] MEDS ORDERED: Enoxaparin 40 MG/0.4 ML Syringe SUBCUT SCH (09:00)
[2017-12-02] MEDS ORDERED: Saccharomyces Boulardii (Probiotic) 250 MG Cap PO SCH (09:00)
== END 2017-12-02 10:58 | disposition home or self-care (01) | DRG 603 ==
LOC: JD.ED 07:53 → JD.MS 10:43
PROVIDERS: ADMIT Internal Medicine Cardiovascular Disease; ATTEND Internal Medicine Cardiovascular Disease
DX: L03.114 Cellulitis of left upper limb (principal); M79.89 Other specified soft tissue disorders; L53.9 Erythematous condition, unspecified; M79.602 Pain in left arm; S51.852A Open bite of left forearm, initial encounter; B99.9 Unspecified infectious disease; E83.42 Hypomagnesemia; I10 Essential (primary) hypertension; L02.414 Cutaneous abscess of left upper limb; H54.7 Unspecified visual loss; E78.00 Pure hypercholesterolemia, unspecified; J44.9 Chronic obstructive pulmonary disease, unspecified; F41.9 Anxiety disorder, unspecified; F32.9 Major depressive disorder, single episode, unspecified; E03.9 Hypothyroidism, unspecified; Z88.2 Allergy status to sulfonamides; Z88.8 Allergy status to other drugs, medicaments and biological substances; E55.9 Vitamin D deficiency, unspecified; R53.1 Weakness; R53.81 Other malaise; Z87.891 Personal history of nicotine dependence; Z87.440 Personal history of urinary (tract) infections; Z90.710 Acquired absence of both cervix and uterus; Z88.1 Allergy status to other antibiotic agents; Z79.899 Other long term (current) drug therapy; Z79.82 Long term (current) use of aspirin; Z91.040 Latex allergy status
CPT/HCPCS: 96365; 99285; J2543; J7030; 36415; 80048; 83605; 83735; 85025; 86140; 94640; 94664; 99283; A9270; A9270-GY; J1650; J3475

== ENCOUNTER 2020-04-09 06:07 | Emergency (ER) | payer MEDICARE ==
--- NOTE | 2020-04-09 06:36 | EDM.PDOC ---
ED HPI GENERAL MEDICAL PROBLEM - General Chief Complaint: Genitourinary Problem Stated Complaint: FREQUENT URINATION AND HIP PAIN Time Seen by Provider: 04/09/20 06:30 Source of Information: Reports: Patient History Limitations: Reports: No Limitations - History of Present Illness INITIAL COMMENTS - FREE TEXT/NARRATIVE: This is a 79-year-old female. She comes in this morning because she is nervous about feeling pressure in her lower abdomen and she thinks she might have a urinary tract infection. Though she is not really having any burning or dysuria. She has had no fever or chills. The second thing she is here is because she has pain that started in her left hip on Saturday. 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 She says last night she was not able to sleep very much because she had so much pain in her left hip. She denies any nausea or vomiting. She denies any other acute symptoms. She has not been exposed to anyone with COVID and she has not been exhibiting any COVID symptoms. Left Hip Pain Score (Numeric/FACES): 6 - Related Data Allergies Allergy/AdvReac Type Severity Reaction Status Date / Time bacitracin Allergy Severe Cannot Verified 04/09/20 06:19 Remember brimonidine [From Alphagan P] Allergy Severe Cardiac Verified 04/09/20 06:19 Arrest latex Allergy Severe Itching Verified 04/09/20 06:19 neomycin Allergy Severe Cannot Verified 04/09/20 06:19 [From Neosporin Remember ([id number])] polymyxin B Allergy Severe Cannot Verified 04/09/20 06:19 [From Neosporin Remember ([id number])] Sulfa (Sulfonamide Allergy Severe Itching Verified 04/09/20 06:19 Antibiotics) amoxicillin trihydrate AdvReac Severe Liver Verified 04/09/20 06:19 [From Augmentin] Problems atorvastatin calcium AdvReac Severe Muscle Verified 04/09/20 06:19 [From Lipitor] Aches potassium clavulanate AdvReac Severe Liver Verified 04/09/20 06:19 [From Augmentin] Problems Home Meds: Home Meds Cholecalciferol (Vitamin D3) [Vitamin D3] 2,000 unit PO DAILY 07/31/16 [History] Levothyroxine Sodium 75 mcg PO DAILY 07/31/16 [History] Ubidecarenone/Vitamin E [Co Q-10 50 MG Softgel] 1 each PO DAILY 07/31/16 [History] Verapamil [Calan SR] 120 mg PO DAILY 07/31/16 [History] Tiotropium [place] [Spiriva Respimat] 1 inh INH DAILY 10/22/16 [History] Rosuvastatin Calcium 10 mg PO BEDTIME 11/30/17 [History] Vit C/E/Zinc/Lutein/Zeaxanthin [Ocuvite [facility] Gummies] 1 tab.chew PO DAILY 11/30/17 [History] Saccharomyces Boulardii [Florastor] 250 mg PO BID #30 cap 12/02/17 [Rx] Albuterol Sulfate [Albuterol Sulfate Hfa] 8.5 gm IH Q4H PRN 04/09/20 [History] Celecoxib 200 mg PO DAILY 04/09/20 [History] Fluticasone Furoate [Arnuity Ellipta] 50 mcg IH BID 04/09/20 [History] Latanoprost/Pf [Latanoprost 0.005% Eye Drop] 1 drop OP DAILY 04/09/20 [History] Tafluprost/Pf [Zioptan 0.0015% Eye Drops] 1 each EYEBOTH BEDTIME 04/09/20 [History] Vitamin B Complex 1 each PO DAILY 04/09/20 [History] Past Medical History HEENT History: Reports: Impaired Vision Other HEENT History: wears eyeglasses. 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: Musculoskeletal History: Reports: Fracture Other Musculoskeletal History: Left wrist fracture Psychiatric History: Reports: Anxiety, Depression Endocrine/Metabolic History: Reports: Hypothyroidism, Vitamin D Deficiency Dermatologic History: Reports: Cellulitis - Past Surgical History HEENT Surgical History: Reports: Cataract Surgery Female Surgical History: Reports: Hysterectomy Musculoskeletal Surgical History: Reports: ORIF, Other (See Below) Dermatological Surgical History: Reports: Other (See Below) Social & Family History - Family History Family Medical History: Noncontributory - Tobacco Use Smoking Status *Q: Never Smoker - Caffeine Use Caffeine Use: Reports: None - Recreational Drug Use Recreational Drug Use: No - Living Situation & Occupation Living situation: Reports: , with Spouse Occupation: Employed (Part-time) ED ROS GENERAL - Review of Systems Review Of Systems: See Below Constitutional: Denies: Fever, Chills HEENT: Reports: No Symptoms Respiratory: Denies: Shortness of Breath, Cough Cardiovascular: Denies: Chest Pain Endocrine: Reports: No Symptoms GI/Abdominal: Reports: Other (Lower abdominal fullness). Denies: Abdominal Pain, Diarrhea, Nausea, Vomiting : Denies: Dysuria, Flank Pain, Incontinence Musculoskeletal: Reports: No Symptoms Skin: Reports: No Symptoms Neurological: Reports: No Symptoms Psychiatric: Reports: No Symptoms ED EXAM, GI/ABD - Physical Exam Exam: See Below Exam Limited By: No Limitations General Appearance: Alert, WD/WN, No Apparent Distress, Anxious Eyes: Bilateral: Normal Appearance Ears: Normal External Exam Nose: Normal Inspection Throat/Mouth: Normal Inspection, Normal Lips, Normal Voice, No Airway Compromise Head: Normocephalic Neck: Supple Respiratory/Chest: No Respiratory Distress, Lungs Clear, Normal Breath Sounds Cardiovascular: Regular Rate, Rhythm, No Murmur GI/Abdominal Exam: Soft, Non-Tender, Other (I palpate the lower abdomen she complains of fullness and pressure in that area but no pain, bowel sounds are positive. There is no upper abdominal tenderness on palpation) Back Exam: Full Range of Motion Extremities: Normal Inspection, Normal Range of Motion, Other (She complains of pain but when she points to the area she is pointing to her left SI joint. When I push on her hip and ask if this is where it hurts she tells me no and then points back to the left SI joint. She has no lumbar tenderness. She is able to walk stand and sit with no difficulty.) Neurological: Alert, Oriented Psychiatric: Normal Mood, Anxious Skin Exam: Warm, Dry Course - Vital Signs Last Recorded V/S: Last Vital Signs Temp 97.2 F 04/09/20 06:16 Pulse 77 04/09/20 06:16 Resp 16 04/09/20 06:16 BP 201/98 H 04/09/20 06:16 Pulse Ox 98 04/09/20 06:16 - Orders/Labs/Meds Orders: Active Orders 24 hr Category Date Time Status Hip Min 1V w Pelvis Lt [CR] Stat Exams 04/09/20 06:34 Taken Labs: Laboratory Tests 04/09/20 Range/Units 06:25 Urine Color Yellow (Yellow) Urine Appearance Clear (Clear) Urine pH 6.5 (5.0-8.0) Ur Specific [place] 1.025 (1.005-1.030) Urine Protein Negative (Negative) Urine Glucose (UA) Negative (Negative) Urine Ketones Negative (Negative) Urine Occult Blood 1+ H (Negative) Urine Nitrite Negative (Negative) Urine Bilirubin Negative (Negative) Urine Urobilinogen 0.2 (0.2-1.0) Ur Leukocyte Esterase Negative (Negative) Urine RBC 5-10 H (0-5) /hpf Urine WBC Not seen (0-5) /hpf Ur Squamous Epith Cells 0-5 (0-5) /hpf Urine Bacteria Rare (FEW) /hpf Urine Mucus Few (FEW) /hpf - Radiology Interpretation Free Text/Narrative:: X-rays of the pelvis and left hip suggest some arthritis in the SI joint but the left hip looks fairly decent. It should be noted as an aside that she has lots of stool in her rectum. - Re-Assessments/Exams Free Text/Narrative Re-Assessment/Exam: 04/09/20 07:10 I spoke to the patient regarding the x-ray results and the urine that was absolutely normal. I suggested that she take some Aleve but not with her Celebrex for the SI joint tenderness. That she follow-up with her family doctor for physical therapy for that SI joint. Departure - Departure Time of Disposition: 07:10 Disposition: Home, Self-Care 01 Condition: Fair Clinical Impression: Inflammation of left sacroiliac joint, Abdominal fullness, Obstipation - Discharge Information *PRESCRIPTION DRUG MONITORING PROGRAM REVIEWED*: Not Applicable *COPY OF PRESCRIPTION DRUG MONITORING REPORT IN PATIENT MAXINE: Not Applicable Instructions: Sacroiliac Joint Dysfunction, Constipation, Adult, [id number] Referrals: Clara Hallman MD [Primary Care Provider] - Forms: ED Department Discharge Additional Instructions: Consider taking a stool softener daily to help you have the bowel movements to take care of the abdominal fullness, follow-up with your family doctor for possible physical therapy for the left sacroiliac joint pain, continue with the Celebrex, you may take Aleve but do not take Celebrex togather and make sure you have food in your stomach when you take the Aleve, this will be additional help with the sacroiliac joint pain, continue with heat to the left SI joint, return to the ER if needed Sepsis Event Note (ED) - Evaluation Sepsis Screening Result: No Definite Risk - Focused Exam Vital Signs: Vital Signs Temp Pulse Resp BP Pulse Ox 04/09/20 06:16 97.2 F 77 16 201/98 H 98 - My Orders Last 24 Hours: My Active Orders 04/09/20 06:34 Hip Min 1V w Pelvis Lt [CR] Stat - Assessment/Plan Last 24 Hours: My Active Orders 04/09/20 06:34 Hip Min 1V w Pelvis Lt [CR] Stat
[2020-04-09 07:15] VITALS: BP 201/98; PULSE 77
--- NOTE | 2020-04-09 09:18 | CR ---
Pelvis and left hip: AP view of the pelvis was obtained as well as AP and frog-leg lateral views of the left hip. Joint space narrowing noted within the left hip which is moderate in severity. Joint space within the right hip appears preserved. Sacroiliac joints appear within normal limits. No acute fracture or dislocation is seen. Slight scoliosis and mild degenerative change partially visualized within the lumbar spine. Impression: 1. Mild degenerative change as noted above. 2. No acute fracture is appreciated. Diagnostic code #2 This report was dictated in MDT I agree with preliminary report from velma, finalized on 04/09/20, 7:58 AM Central Daylight Time
== END 2020-04-09 07:24 | disposition home or self-care (01) ==
LOC: JD.ED 06:07
DX: K59.00 Constipation, unspecified (principal); M46.1 Sacroiliitis, not elsewhere classified; E78.00 Pure hypercholesterolemia, unspecified; I10 Essential (primary) hypertension; J44.9 Chronic obstructive pulmonary disease, unspecified; E03.9 Hypothyroidism, unspecified; Z88.1 Allergy status to other antibiotic agents; Z91.040 Latex allergy status; Z88.8 Allergy status to other drugs, medicaments and biological substances
CPT/HCPCS: 73501-26-LT; 73501-LT; 81001; 99282; 99283

== ENCOUNTER 2021-03-31 10:24 | Emergency (ER) | payer MEDICARE, OTHER ==
[2021-03-31 10:43] VITALS: BP 117/72; PULSE 61
[2021-03-31] MEDS ORDERED: Sodium Chloride 0.9% 10 ML Syringe FLUSH PRN (10:54)
--- NOTE | 2021-03-31 13:35 | EDM.PDOC ---
ED HPI GENERAL MEDICAL PROBLEM - General Chief Complaint: Syncope Stated Complaint: [facility] Time Seen by Provider: 03/31/21 10:37 Source of Information: Reports: Patient, EMS History Limitations: Reports: No Limitations - History of Present Illness INITIAL COMMENTS - FREE TEXT/NARRATIVE: The patient presents by [facility] for syncope. She said she was gettin g her hair done in [place] and she passed out for a few seconds. There was no seizure activity. She has no headache, fever, chills, cough, chest pain, shortness of breath, abdominal pain, nausea or vomiting. She says she does feel anxious at times. She also has a rash on her abdomen and behind her left leg. This has been going on for a few days. The syncope has never happened before. Onset: Sudden Duration: Minutes: Severity: Moderate Improves with: Reports: None Worsens with: Reports: None Associated Symptoms: Reports: No Other Symptoms Right Neck Pain Score (Numeric/FACES): 8 - Related Data Allergies Allergy/AdvReac Type Severity Reaction Status Date / Time bacitracin Allergy Severe Cannot Verified 03/31/21 10:43 Remember brimonidine [From Alphagan P] Allergy Severe Cardiac Verified 03/31/21 10:43 Arrest latex Allergy Severe Itching Verified 03/31/21 10:43 neomycin Allergy Severe Cannot Verified 03/31/21 10:43 [From Neosporin Remember ([id number])] polymyxin B Allergy Severe Cannot Verified 03/31/21 10:43 [From Neosporin Remember ([id number])] Sulfa (Sulfonamide Allergy Severe Itching Verified 03/31/21 10:43 Antibiotics) amoxicillin trihydrate AdvReac Severe Liver Verified 03/31/21 10:43 [From Augmentin] Problems atorvastatin calcium AdvReac Severe Muscle Verified 03/31/21 10:43 [From Lipitor] Aches potassium clavulanate AdvReac Severe Liver Verified 03/31/21 10:43 [From Augmentin] Problems Home Meds: Home Meds Cholecalciferol (Vitamin D3) [Vitamin D3] 2,000 unit PO DAILY 07/31/16 [History] Levothyroxine Sodium 75 mcg PO DAILY 07/31/16 [History] Ubidecarenone/Vitamin E [Co Q-10 50 MG Softgel] 1 each PO DAILY 07/31/16 [History] Verapamil [Calan SR] 120 mg PO DAILY 07/31/16 [History] Tiotropium [place] [Spiriva Respimat] 1 inh INH DAILY 10/22/16 [History] Rosuvastatin Calcium 10 mg PO BEDTIME 11/30/17 [History] Vit C/E/Zinc/Lutein/Zeaxanthin [Ocuvite [facility] Gummies] 1 tab.chew PO DAILY 11/30/17 [History] Saccharomyces Boulardii [Florastor] 250 mg PO BID #30 cap 12/02/17 [Rx] Albuterol Sulfate [Albuterol Sulfate Hfa] 8.5 gm IH Q4H PRN 04/09/20 [History] Celecoxib 200 mg PO DAILY 04/09/20 [History] Fluticasone Furoate [Arnuity Ellipta] 50 mcg IH BID 04/09/20 [History] Latanoprost/Pf [Latanoprost 0.005% Eye Drop] 1 drop OP DAILY 04/09/20 [History] Tafluprost/Pf [Zioptan 0.0015% Eye Drops] 1 each EYEBOTH BEDTIME 04/09/20 [History] Vitamin B Complex 1 each PO DAILY 04/09/20 [History] Hydrocortisone [Hydrocortisone 2.5% Crm] 1 gm TOP BID #30 gm 03/31/21 [Rx] Past Medical History HEENT History: Reports: Impaired Vision Other HEENT History: wears eyeglasses. 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 Bulging disc repair Dermatological Surgical History: Reports: Other (See Below) Social & Family History - Family History Family Medical History: No Pertinent Family History - Tobacco Use Tobacco Use Status *Q: Former Tobacco User Used Tobacco, but Quit: Yes Month/Year Tobacco Last Used: 01/2015 - Caffeine Use Caffeine Use: Reports: Coffee, Tea - Recreational Drug Use Recreational Drug Use: No - Living Situation & Occupation Living situation: Reports: , with Spouse Occupation: Employed (Part-time) ED ROS GENERAL - Review of Systems Review Of Systems: See Below Constitutional: Reports: No Symptoms HEENT: Reports: No Symptoms Respiratory: Reports: No Symptoms Cardiovascular: Reports: Syncope. Denies: Chest Pain Endocrine: Reports: No Symptoms GI/Abdominal: Reports: No Symptoms : Reports: No Symptoms Musculoskeletal: Reports: No Symptoms Skin: Reports: No Symptoms - Physical Exam Exam: See Below Exam Limited By: No Limitations General Appearance: Alert, No Apparent Distress Ears: Normal External Exam Nose: Normal Inspection Head Exam: Atraumatic, Normocephalic Neck: Normal Inspection Respiratory/Chest: No Respiratory Distress, Lungs Clear, Normal Breath Sounds Cardiovascular: Regular Rate, Rhythm, No Edema, No Murmur GI/Abdominal: Soft, Non-Tender, No Organomegaly, No Mass Neuro Exam (Abbreviated): Alert, Oriented, No Motor/Sensory Deficits Skin Exam: Other (papules to the left abdomen and behind the right knee) #1 Interpretation EKG Date: 03/31/21 Time: 11:11 Rhythm: NSR Rate (Beats/Min): 59 [place]: LAD-Left [place] Deviation P-Wave: Present QRS: Normal ST-T: Normal QT: Normal EKG Interpretation Comments: Q waves in the anterior and inferior leads Course - Vital Signs Last Recorded V/S: Last Vital Signs Temp 98.4 F 03/31/21 10:36 Pulse 61 03/31/21 10:36 Resp 18 03/31/21 10:36 BP 117/72 03/31/21 10:36 Pulse Ox 94 L 03/31/21 10:36 - Orders/Labs/Meds Orders: Active Orders 24 hr Category Date Time Status Cardiac Monitoring [RC] . DIRECTED Care 03/31/21 10:54 Active EKG Documentation Completion [RC] STAT Care 03/31/21 10:54 Active Holter Monitor 48 Hours [RC] .PRN Care 03/31/21 13:34 Active Peripheral IV Care [RC] . DIRECTED Care 03/31/21 10:54 Active Sodium Chloride 0.9% [Saline Flush] Med 03/31/21 10:54 Active 10 ml FLUSH ASDIRECTED PRN Peripheral IV Insertion Adult [OM.PC] Stat Oth 03/31/21 10:54 Ordered Medication Orders Sodium Chloride (Sodium Chloride 0.9% 10 Ml Syringe) 10 ml FLUSH ASDIRECTED PRN PRN Reason: Keep Vein Open Last Admin: 03/31/21 13:12 Dose: 10 ml Documented by: REMIGIO Labs: Laboratory Tests 03/31/21 03/31/21 03/31/21 Range/Units 11:07 11:07 13:00 WBC 15.53 H (3.98-10.04) K/mm3 RBC 4.62 (3.98-5.22) M/mm3 Hgb 14.7 (11.2-15.7) gm/dl Hct 43.7 (34.1-44.9) % MCV 94.6 (79.4-94.8) fl MCH 31.8 (25.6-32.2) pg MCHC 33.6 (32.2-35.5) g/dl RDW Std Deviation 51.1 H (36.4-46.3) fL Plt Count 342 (182-369) K/mm3 MPV 8.3 L (9.4-12.3) fl Neut % (Auto) 85.6 H (34.0-71.1) % Lymph % (Auto) 7.3 L (19.3-51.7) % [place] % (Auto) 6.3 (4.7-12.5) % Eos % (Auto) 0.6 L (0.7-5.8) Baso % (Auto) 0.1 (0.1-1.2) % Neut # (Auto) 13.27 H (1.56-6.13) K/mm3 Lymph # (Auto) 1.14 L (1.18-3.74) K/mm3 [place] # (Auto) 0.98 H (0.24-0.36) K/mm3 Eos # (Auto) 0.10 (0.04-0.36) K/mm3 Baso # (Auto) 0.02 (0.01-0.08) K/mm3 Manual Slide Review Abnormal smear Sodium 144 (136-145) mEq/L Potassium 4.1 (3.5-5.1) mEq/L Chloride 106 (98-107) mEq/L Carbon Dioxide 28 (21-32) mEq/L Anion Gap 14.1 (5-15) BUN 22 H (7-18) mg/dL Creatinine 0.7 (0.55-1.02) mg/dL Est Cr Clr Drug Dosing 51.70 mL/min Estimated GFR (MDRD) > 60 (>60) mL/min BUN/Creatinine Ratio 31.4 H (14-18) Glucose 89 (70-99) mg/dL Calcium 8.9 (8.5-10.1) mg/dL Magnesium 1.9 (1.8-2.4) mg/dL Total Bilirubin 0.4 (0.2-1.0) mg/dL AST 20 (15-37) U/L ALT 25 (14-59) U/L Alkaline Phosphatase 69 (46-116) U/L Troponin I < 0.017 (0.00-0.056) ng/mL Total Protein 6.9 (6.4-8.2) g/dl Albumin 3.6 (3.4-5.0) g/dl Globulin 3.3 gm/dL Albumin/Globulin Ratio 1.1 (1-2) Urine Color Yellow (Yellow) Urine Appearance Clear (Clear) Urine pH 6.0 (5.0-8.0) Ur Specific [place] 1.015 (1.005-1.030) Urine Protein Negative (Negative) Urine Glucose (UA) Negative (Negative) Urine Ketones Negative (Negative) Urine Occult Blood Trace-intact H (Negative) Urine Nitrite Negative (Negative) Urine Bilirubin Negative (Negative) Urine Urobilinogen 0.2 (0.2-1.0) Ur Leukocyte Esterase Negative (Negative) Urine RBC 0-5 (0-5) /hpf Urine WBC 0-5 (0-5) /hpf Ur Squamous Epith Cells 0-5 (0-5) /hpf Urine Bacteria Few (FEW) /hpf Urine Mucus Not seen (FEW) /hpf Meds: Medications Generic Name Dose Route Start Last Admin Trade Name Freq PRN Reason Stop Dose Admin Sodium Chloride 10 ml 03/31/21 10:54 03/31/21 13:12 Sodium Chloride 0.9% 10 Ml Syringe FLUSH 10 ml ASDIRECTED PRN Administration Keep Vein Open - Re-Assessments/Exams Free Text/Narrative Re-Assessment/Exam: 03/31/21 13:39 I ordered an IV saline lock, EKG, and labs. Her EKG shows a NSR with no acute changes. Her WBC was elevated at 15.53. Her CMP looks good. Her troponin is negative. Her UA shows no UTI. I will get her on a holter monitor and have her follow up with Dr Canela. Departure - Departure Time of Disposition: 13:45 Disposition: Home, Self-Care 01 Condition: Good Clinical Impression: Rash Syncope Qualifiers: Syncope type: unspecified Qualified Code(s): R55 - Syncope and collapse - Discharge Information *PRESCRIPTION DRUG MONITORING PROGRAM REVIEWED*: Not Applicable *COPY OF PRESCRIPTION DRUG MONITORING REPORT IN PATIENT MAXINE: Not Applicable Prescriptions: Hydrocortisone [Hydrocortisone 2.5% Crm] 1 gm TOP BID #30 gm Referrals: Clara Hallman MD [Primary Care Provider] - 1 Week Forms: ED Department Discharge Additional Instructions: Wear the holter monitor for 48 hours. Drink plenty of fluids. Use the hydrocortisone 2 times per day on the rash for about a week. Follow up with Dr Canela within a week. Please return if you are worse. Sepsis Event Note (ED) - Evaluation Sepsis Screening Result: No Definite Risk - Focused Exam Vital Signs: Vital Signs Temp Pulse Resp BP Pulse Ox 03/31/21 10:36 98.4 F 61 18 117/72 94 L - My Orders Last 24 Hours: My Active Orders 03/31/21 10:54 Cardiac Monitoring [RC] . DIRECTED EKG Documentation Completion [RC] STAT Peripheral IV Care [RC] . DIRECTED Sodium Chloride 0.9% [Saline Flush] 10 ml FLUSH ASDIRECTED PRN Peripheral IV Insertion Adult [OM.PC] Stat 03/31/21 13:34 Holter Monitor 48 Hours [RC] .PRN - Assessment/Plan Last 24 Hours: My Active Orders 03/31/21 10:54 Cardiac Monitoring [RC] . DIRECTED EKG Documentation Completion [RC] STAT Peripheral IV Care [RC] . DIRECTED Sodium Chloride 0.9% [Saline Flush] 10 ml FLUSH ASDIRECTED PRN Peripheral IV Insertion Adult [OM.PC] Stat 03/31/21 13:34 Holter Monitor 48 Hours [RC] .PRN
== END 2021-03-31 14:50 | disposition home or self-care (01) ==
LOC: JD.ED 10:24
DX: R55 Syncope and collapse (principal); R21 Rash and other nonspecific skin eruption; E78.00 Pure hypercholesterolemia, unspecified; I10 Essential (primary) hypertension; E03.9 Hypothyroidism, unspecified; Z87.891 Personal history of nicotine dependence; Z79.899 Other long term (current) drug therapy; Z88.1 Allergy status to other antibiotic agents; Z88.2 Allergy status to sulfonamides; Z91.040 Latex allergy status; Z88.0 Allergy status to penicillin
CPT/HCPCS: 36415; 80053; 81001; 83735; 84484; 85025; 93005; 93010; 93225; 93226; 99283; 99284-25

== ENCOUNTER 2021-07-29 08:34 | Emergency (ER) | payer MEDICARE ==
[2021-07-29 09:26] VITALS: BP 163/93; PULSE 70
--- NOTE | 2021-07-29 12:47 | EDM.PDOC ---
ED HPI GENERAL MEDICAL PROBLEM - General Chief Complaint: Lower Extremity Injury/Pain Stated Complaint: R NECK AND SHOULDER/L HIP PAIN Time Seen by Provider: 07/29/21 09:26 Source of Information: Reports: Patient History Limitations: Reports: No Limitations - History of Present Illness INITIAL COMMENTS - FREE TEXT/NARRATIVE: The patient presents with neck pain and left low back and hip pain. She has been dealing with chronic neck pain for over a year. She had a cervical spine fusion and that did not help. She has seen multiple specialists and she still has pain. She now developed some pain in her left low back and left hip. She did not hurt herself in any way. She has no numbness or weakness. She has no bowel or bladder problems. She has not had problems with her back before. Onset: Gradual Duration: Hour(s): Location: Reports: Neck, Back Quality: Reports: Sharp Severity: Moderate Improves with: Reports: Immobilization Worsens with: Reports: Movement Context: Denies: Trauma Associated Symptoms: Reports: No Other Symptoms Left Hip Pain Score (Numeric/FACES): 8 - Related Data Allergies Allergy/AdvReac Type Severity Reaction Status Date / Time bacitracin Allergy Severe Cannot Verified 07/29/21 09:26 Remember brimonidine [From Alphagan P] Allergy Severe Cardiac Verified 07/29/21 09:26 Arrest latex Allergy Severe Itching Verified 07/29/21 09:26 neomycin Allergy Severe Cannot Verified 07/29/21 09:26 [From Neosporin Remember ([id number])] polymyxin B Allergy Severe Cannot Verified 07/29/21 09:26 [From Neosporin Remember ([id number])] Sulfa (Sulfonamide Allergy Severe Itching Verified 07/29/21 09:26 Antibiotics) amoxicillin trihydrate AdvReac Severe Liver Verified 07/29/21 09:26 [From Augmentin] Problems atorvastatin calcium AdvReac Severe Muscle Verified 07/29/21 09:26 [From Lipitor] Aches potassium clavulanate AdvReac Severe Liver Verified 07/29/21 09:26 [From Augmentin] Problems Home Meds: Home Meds Cholecalciferol (Vitamin D3) [Vitamin D3] 2,000 unit PO DAILY 07/31/16 [History] Levothyroxine Sodium 75 mcg PO DAILY 07/31/16 [History] Ubidecarenone/Vitamin E [Co Q-10 50 MG Softgel] 1 each PO DAILY 07/31/16 [History] Verapamil [Calan SR] 120 mg PO DAILY 07/31/16 [History] Tiotropium [place] [Spiriva Respimat] 1 inh INH DAILY 10/22/16 [History] Rosuvastatin Calcium 10 mg PO BEDTIME 11/30/17 [History] Vit C/E/Zinc/Lutein/Zeaxanthin [Ocuvite Eye Health Gummies] 1 tab.chew PO DAILY 11/30/17 [History] Saccharomyces Boulardii [Florastor] 250 mg PO BID #30 cap 12/02/17 [Rx] Albuterol Sulfate [Albuterol Sulfate Hfa] 8.5 gm IH Q4H PRN 04/09/20 [History] Celecoxib 200 mg PO DAILY 04/09/20 [History] Fluticasone Furoate [Arnuity Ellipta] 50 mcg IH BID 04/09/20 [History] Latanoprost/Pf [Latanoprost 0.005% Eye Drop] 1 drop OP DAILY 04/09/20 [History] Tafluprost/Pf [Zioptan 0.0015% Eye Drops] 1 each EYEBOTH BEDTIME 04/09/20 [History] Vitamin B Complex 1 each PO DAILY 04/09/20 [History] Hydrocortisone [Hydrocortisone 2.5% Crm] 1 gm TOP BID #30 gm 03/31/21 [Rx] Past Medical History HEENT History: Reports: Impaired Vision Other HEENT History: wears eyeglasses. Cardiovascular History: Reports: High Cholesterol, Hypertension Respiratory History: Reports: COPD Genitourinary History: Reports: UTI, Recurrent [employer] History: Reports: Musculoskeletal History: Reports: Fracture Other Musculoskeletal History: Left wrist fracture Psychiatric History: Reports: Anxiety, Depression Endocrine/Metabolic History: Reports: Hypothyroidism, Vitamin D Deficiency Dermatologic History: Reports: Cellulitis - Past Surgical History HEENT Surgical History: Reports: Cataract Surgery Female Surgical History: Reports: Hysterectomy Musculoskeletal Surgical History: Reports: ORIF, Other (See Below) Other Musculoskeletal Surgeries/Procedures:: Right arm surgery due to cat bite. Bulging disc repair Dermatological Surgical History: Reports: Other (See Below) Social & Family History - Family History Family Medical History: No Pertinent Family History - Tobacco Use Tobacco Use Status *Q: Never Tobacco User Second Hand Smoke Exposure: No - Caffeine Use Caffeine Use: Reports: Coffee - Recreational Drug Use Recreational Drug Use: No - Living Situation & Occupation Living situation: Reports: , with Spouse Occupation: Employed (Part-time) Review of Systems - Review of Systems Review Of Systems: See Below Constitutional: Reports: No Symptoms Eyes: Reports: No Symptoms Ears: Reports: No Symptoms Nose: Reports: No Symptoms Mouth/Throat: Reports: No Symptoms Respiratory: Reports: No Symptoms Cardiovascular: Reports: No Symptoms GI/Abdominal: Reports: No Symptoms Musculoskeletal: Reports: Neck Pain, Back Pain Skin: Reports: No Symptoms Neurological: Reports: No Symptoms ED EXAM, GENERAL - Physical Exam Exam: See Below Exam Limited By: No Limitations General Appearance: Alert, No Apparent Distress Ears: Normal External Exam Nose: Normal Inspection Head: Atraumatic, Normocephalic Neck: Other (pain upon palpation to the mid neck) Respiratory/Chest: No Respiratory Distress, Lungs Clear, Normal Breath Sounds Cardiovascular: Regular Rate, Rhythm, No Edema, No Murmur GI/Abdominal: Soft, Non-Tender, No Organomegaly, No Mass Back Exam: Other (Pain upon palpation to the left low back) Extremities: Normal Inspection Neurological: Alert, Oriented, No Motor/Sensory Deficits Course - Vital Signs Last Recorded V/S: Last Vital Signs Temp 97.4 F 07/29/21 09:25 Pulse 70 07/29/21 09:25 Resp 20 07/29/21 09:25 BP 163/93 H 07/29/21 09:25 Pulse Ox 100 07/29/21 09:25 - Orders/Labs/Meds Orders: Active Orders 24 hr Category Date Time Status Hip Min 2V or 3V w Pelvis Lt [CR] Stat Exams 07/29/21 09:29 Taken Lumbar Spine 2 or 3V [CR] Stat Exams 07/29/21 10:09 Taken Labs: Laboratory Tests 07/29/21 Range/Units 11:17 Urine Color Yellow (Yellow) Urine Appearance Clear (Clear) Urine pH 7.0 (5.0-8.0) Ur Specific [place] 1.020 (1.005-1.030) Urine Protein Negative (Negative) Urine Glucose (UA) Negative (Negative) Urine Ketones Negative (Negative) Urine Occult Blood Trace-intact H (Negative) Urine Nitrite Negative (Negative) Urine Bilirubin Negative (Negative) Urine Urobilinogen 0.2 (0.2-1.0) Ur Leukocyte Esterase Negative (Negative) Urine RBC 5-10 H (0-5) /hpf Urine WBC 0-5 (0-5) /hpf Ur Squamous Epith Cells 0-5 (0-5) /hpf Amorphous Sediment Few H (NOT SEEN) /hpf Urine Bacteria Few (FEW) /hpf Urine Mucus Not seen (FEW) /hpf - Re-Assessments/Exams Free Text/Narrative Re-Assessment/Exam: 07/29/21 12:45 I ordered an x-ray of her lumbar spine and left hip and pelvis. The x-ray of her left hip and pelvis shows some degenerative changes but no fractures. Her lumbar spine x-ray shows scoliosis and degenerative changes. I also ordered a UA because she did mention she was urinating more often. The UA showed no UTI but she did have some blood. I was going to order a CT of her abdomen and pelvis without contrast to look for a kidney stone but the patient's had to go and they left. Departure - Departure Time of Disposition: 12:50 Disposition: Home, Self-Care 01 Condition: Good Clinical Impression: Left low back pain Qualifiers: Chronicity: acute Sciatica presence: with sciatica Sciatica laterality: sciatica of left side Qualified Code(s): M54.42 - Lumbago with sciatica, left side - Discharge Information *PRESCRIPTION DRUG MONITORING PROGRAM REVIEWED*: Not Applicable *COPY OF PRESCRIPTION DRUG MONITORING REPORT IN PATIENT MAXINE: Not Applicable Referrals: Clara Hallman MD [Primary Care Provider] - 1 Week Additional Instructions: Take tylenol or motrin for the pain. Follow up with Dr Canela within a week. Please return if you are worse. Sepsis Event Note (ED) - Focused Exam Vital Signs: Vital Signs Temp Pulse Resp BP Pulse Ox 07/29/21 09:25 97.4 F 70 20 163/93 H 100 - My Orders Last 24 Hours: My Active Orders 07/29/21 09:29 Hip Min 2V or 3V w Pelvis Lt [CR] Stat 07/29/21 10:09 Lumbar Spine 2 or 3V [CR] Stat - Assessment/Plan Last 24 Hours: My Active Orders 07/29/21 09:29 Hip Min 2V or 3V w Pelvis Lt [CR] Stat 07/29/21 10:09 Lumbar Spine 2 or 3V [CR] Stat
--- NOTE | 2021-07-29 18:47 | CR ---
Pelvis and left hip: AP view of the pelvis was obtained as well as AP and frog-leg lateral views of the left hip. Comparison: Prior pelvis and left hip exam of 04/09/20. Joint space narrowing is seen superiorly within the left hip. Slight cystic change is also noted within the femoral head on the left side. This is similar to prior study. Joint space within the right hip is fairly well preserved. Sacroiliac joints are unremarkable. Bony structures are slightly osteopenic. No fracture or other abnormality is appreciated. Impression: 1. Mild degenerative change within the left hip. Findings are fairly stable from prior exam. 2. Nothing acute is appreciated. Diagnostic code #2
--- NOTE | 2021-07-29 19:01 | CR ---
Lumbar spine: AP, lateral and coned-down lateral views centered to the lumbosacral junction were obtained. Comparison: No prior lumbar spine imaging is available. Prominent scoliosis is noted. Diffuse disc space narrowing scattered within the lumbar spine is seen. Slight anterior spondylolisthesis is seen at L3-4 and L4-5. Findings worse at L4-5 which measures approximately 3.5 mm. Osteophytes are seen anterior and laterally. Pedicles are intact. No fracture is seen. Vascular calcification is noted. Impression: 1. Diffuse disc space narrowing within the lumbar spine with endplate osteophytes. 2. Slight spondylolisthesis at L3-4 and L4-5. 3. Vascular calcification is noted within the abdominal aorta. Diagnostic code #3
== END 2021-07-29 10:30 | disposition home or self-care (01) ==
LOC: JD.ED 08:34
DX: M54.42 Lumbago with sciatica, left side (principal); E03.9 Hypothyroidism, unspecified; E78.00 Pure hypercholesterolemia, unspecified; I10 Essential (primary) hypertension; J44.9 Chronic obstructive pulmonary disease, unspecified; Z91.040 Latex allergy status; Z88.1 Allergy status to other antibiotic agents; Z88.2 Allergy status to sulfonamides; Z88.5 Allergy status to narcotic agent; Z88.8 Allergy status to other drugs, medicaments and biological substances; Z79.899 Other long term (current) drug therapy
CPT/HCPCS: 72100; 72100-26; 73502-26-LT; 73502-LT; 81001; 99283-25

== ENCOUNTER 2023-01-18 10:04 | Inpatient (IN) | payer MEDICARE ==
[~2023-01-18 10:04] MED LIST: Enoxaparin 40 MG/0.4 ML Syringe SUBCUT SCH
[2023-01-18 11:24] LABS: APPEARANCE,URINE CLEAR (Clear); BILIRUBIN,URINE NEGATIVE (Negative); COLOR,URINE DARK YELLOW (Yellow); GLUCOSE,URINE NEGATIVE (Negative); KETONES,URINE TRACE (Negative); LEUKOCYTE ESTERASE,URINE NEGATIVE (Negative); NITRITE,URINE NEGATIVE (Negative); OCCULT BLOOD,URINE TRACE-LYSED (Negative); PH,URINE 5.5 (5.0-8.0); PROTEIN,URINE NEGATIVE (Negative); UROBILINOGEN,URINE 0.2 (0.2-1.0)
[2023-01-18 11:45] LABS: BACTERIA,URINE FEW /hpf (FEW); SQUAMOUS EPITHELIAL CELLS,UR 0-5 /hpf (0-5); WBC,URINE 0-5 /hpf (0-5)
[2023-01-18 11:46] LABS: MUCUS,URINE MANY /hpf (FEW)
[2023-01-18 11:49] LABS: BASOPHILS ABSOLUTE AUTO 0.02 K/mm3 (0.01-0.08); BASOPHILS PERCENT AUTO 0.2 % (0.1-1.2); EOSINOPHILS ABSOLUTE AUTO 0.05 K/mm3 (0.04-0.36); EOSINOPHILS PERCENT AUTO 0.4 (0.7-5.8); HEMATOCRIT 41.3 % (34.1-44.9); HEMOGLOBIN 13.7 gm/dl (11.2-15.7); IMMATURE GRAN ABSOLUTE AUTO 0.02 K/mm3 (0.00-0.10); IMMATURE GRAN PERCENT AUTO 0.2 % (<=1.0); LYMPHOCYTES ABSOLUTE AUTO 1.03 K/mm3 (1.18-3.74); LYMPHOCYTES PERCENT AUTO 8.7 % (19.3-51.7); MEAN CORPUSCULAR HEMOGLOBIN 31.8 pg (25.6-32.2); MEAN CORPUSCULAR HGB CONC 33.2 g/dl (32.2-35.5); MEAN CORPUSCULAR VOLUME 95.8 fl (79.4-94.8); MEAN PLATELET VOLUME 7.9 fl (9.4-12.3); MONOCYTES ABSOLUTE AUTO 0.74 K/mm3 (0.24-0.36); MONOCYTES PERCENT AUTO 6.2 % (4.7-12.5); NEUTROPHILS ABSOLUTE AUTO 10.04 K/mm3 (1.56-6.13); NEUTROPHILS PERCENT AUTO 84.3 % (34.0-71.1); PLATELET COUNT,PLT 281 K/mm3 (182-369); RED BLOOD CELL COUNT 4.31 M/mm3 (3.98-5.22)
[2023-01-18 12:01] LABS: A/G RATIO 0.9 (1-2); ALANINE AMINOTRANSFERASE,ALT 25 U/L (14-59); ALBUMIN 3.1 g/dl (3.4-5.0); ALKALINE PHOSPHATASE 101 U/L (46-116); ANION GAP 11.8 (5-15); ASPARTATE AMNIOTRANSFERASE,AST 19 U/L (15-37); BILIRUBIN TOTAL 0.5 mg/dL (0.2-1.0); BLOOD UREA NITROGEN,BUN 18 mg/dL (7-18); BUN/CREATININE RATIO 25.7 (14-18); CALCIUM 8.9 mg/dL (8.5-10.1); CARBON DIOXIDE,CO2 27 mEq/L (21-32); CHLORIDE,CL 104 mEq/L (98-107); CREATININE 0.7 mg/dL (0.55-1.02); ESTIMATED GFR 87 mL/min (>60); GLUCOSE RANDOM 93 mg/dL (70-99); MAGNESIUM 1.8 mg/dL (1.8-2.4); POTASSIUM,K 3.8 mEq/L (3.5-5.1); PROTEIN TOTAL,TP 6.7 g/dl (6.4-8.2); SODIUM,NA 139 mEq/L (136-145)
[2023-01-18 12:03] LABS: CORONAVIRUS COVID-19 NAA NEGATIVE (NEGATIVE); INFLUENZA A NAA NEGATIVE (NEGATIVE); RESPIRATORY SYNCYTIAL VIR NAA NEGATIVE (NEGATIVE)
[2023-01-18] MEDS ORDERED: methylPREDNISolone Sodium Succinate 40 MG/1 ML SDV IVPUSH ONE (14:12)
[2023-01-18] MEDS ORDERED: Acetaminophen 325 MG Tab PO PRN ×2 (14:13→23:30)
[2023-01-18] MEDS ORDERED: Ondansetron 4 MG/2 ML SDV IV PRN (14:13)
[2023-01-18] MEDS ORDERED: Docusate Sodium 100 MG Cap PO PRN ×2 (14:13→23:30)
[2023-01-18] MEDS ORDERED: Azithromycin 500 MG in Sodium Chloride 0.9% 250 ML IV SCH (14:15)
[2023-01-18] MEDS ORDERED: Acetaminophen 325 MG Tab PO SCH (14:30)
[2023-01-18] MEDS ORDERED: Lidocaine 4% 1 each Patch TOP SCH (15:00)
[2023-01-18] MEDS: Albuterol/Ipratropium 3.0-0.5 MG/3 ML Neb Soln NEB SCH ×2 (16:30→20:51)
[2023-01-18] MEDS: Azithromycin 500 MG in Sodium Chloride 0.9% 250 ML IV SCH (17:32)
[2023-01-18] MEDS: Acetaminophen 325 MG Tab PO SCH (17:34)
[2023-01-18] MEDS: Enoxaparin 40 MG/0.4 ML Syringe SUBCUT SCH (17:38)
[2023-01-18] MEDS: Lidocaine 4% 1 each Patch TOP SCH (17:39)
[2023-01-18] MEDS: methylPREDNISolone Sodium Succinate 40 MG/1 ML SDV IVPUSH SCH (21:39)
[2023-01-18] MEDS: Rosuvastatin 10 MG Tab PO SCH (21:39)
[2023-01-18] MEDS: Latanoprost 0.005% Ophth Soln 2.5 ML Bottle EYEBOTH SCH (21:40)
[2023-01-18] MEDS ORDERED: Ondansetron 4 MG/2 ML SDV IVPUSH PRN (23:30)
[2023-01-18] MEDS ORDERED: hydrALAZINE 20 MG/ML SDV IVPUSH PRN (23:30)
[2023-01-19] MEDS: Acetaminophen 325 MG Tab PO SCH ×3 (00:08→17:04)
[2023-01-19] MEDS ORDERED: oxyCODONE 5 MG Tab PO PRN (00:26)
[2023-01-19 05:30] LABS: BASOPHILS ABSOLUTE AUTO 0.01 K/mm3 (0.01-0.08); BASOPHILS PERCENT AUTO 0.1 % (0.1-1.2); EOSINOPHILS PERCENT AUTO 0 (0.7-5.8); HEMATOCRIT 40.2 % (34.1-44.9); HEMOGLOBIN 13.4 gm/dl (11.2-15.7); IMMATURE GRAN ABSOLUTE AUTO 0.01 K/mm3 (0.00-0.10); IMMATURE GRAN PERCENT AUTO 0.1 % (<=1.0); LYMPHOCYTES ABSOLUTE AUTO 0.41 K/mm3 (1.18-3.74); LYMPHOCYTES PERCENT AUTO 5.3 % (19.3-51.7); MEAN CORPUSCULAR HEMOGLOBIN 32.1 pg (25.6-32.2); MEAN CORPUSCULAR HGB CONC 33.3 g/dl (32.2-35.5); MEAN CORPUSCULAR VOLUME 96.4 fl (79.4-94.8); MEAN PLATELET VOLUME 7.9 fl (9.4-12.3); MONOCYTES ABSOLUTE AUTO 0.06 K/mm3 (0.24-0.36); MONOCYTES PERCENT AUTO 0.8 % (4.7-12.5); NEUTROPHILS ABSOLUTE AUTO 7.25 K/mm3 (1.56-6.13); NEUTROPHILS PERCENT AUTO 93.7 % (34.0-71.1); PLATELET COUNT,PLT 267 K/mm3 (182-369); RED BLOOD CELL COUNT 4.17 M/mm3 (3.98-5.22); WHITE BLOOD CELL COUNT,WBC 7.74 K/mm3 (3.98-10.04)
[2023-01-19 05:47] LABS: ANION GAP 12.8 (5-15); BUN/CREATININE RATIO 21.4 (14-18); CREATININE 0.7 mg/dL (0.55-1.02); EST CRCL DRUG DOSING (CG) 49.2 mL/min; MAGNESIUM 1.9 mg/dL (1.8-2.4); POTASSIUM,K 3.8 mEq/L (3.5-5.1)
[2023-01-19] MEDS: Levothyroxine 88 MCG Tab PO SCH (06:08)
[2023-01-19] MEDS: Albuterol/Ipratropium 3.0-0.5 MG/3 ML Neb Soln NEB SCH ×4 (06:15→20:28)
[2023-01-19 06:23] LABS: SLIDE REVIEW ABNORMAL SMEAR
[2023-01-19] MEDS ORDERED: Enoxaparin 40 MG/0.4 ML Syringe SUBCUT SCH (09:00)
[2023-01-19] MEDS ORDERED: Albuterol/Ipratropium 3.0-0.5 MG/3 ML Neb Soln NEB SCH (09:00)
[2023-01-19] MEDS: methylPREDNISolone Sodium Succinate 40 MG/1 ML SDV IVPUSH SCH ×2 (09:01→22:10)
[2023-01-19] MEDS: Verapamil 120 MG Cap.ER PO SCH (09:03)
[2023-01-19] MEDS: Multivitamin Tab PO SCH (09:03)
[2023-01-19] MEDS: Enoxaparin 40 MG/0.4 ML Syringe SUBCUT SCH (09:04)
[2023-01-19] MEDS: Lidocaine 4% 1 each Patch TOP SCH (09:04)
[2023-01-19] MEDS: Tiotropium Bromide 4 GM Inhalation Spray (2.5mcg/1 dose; 10 doses) INH SCH (09:24)
[2023-01-19] MEDS: LORazepam 0.5 MG Tab PO PRN ×2 (13:18→22:08)
[2023-01-19 16:55] LABS: APPEARANCE,URINE CLEAR (Clear); BILIRUBIN,URINE NEGATIVE (Negative); COLOR,URINE YELLOW (Yellow); GLUCOSE,URINE NEGATIVE (Negative); KETONES,URINE NEGATIVE (Negative); LEUKOCYTE ESTERASE,URINE NEGATIVE (Negative); NITRITE,URINE NEGATIVE (Negative); OCCULT BLOOD,URINE 1+ (Negative); PROTEIN,URINE NEGATIVE (Negative); UROBILINOGEN,URINE 0.2 (0.2-1.0)
[2023-01-19] MEDS: Azithromycin 500 MG in Sodium Chloride 0.9% 250 ML IV SCH (17:00)
[2023-01-19 17:15] LABS: BACTERIA,URINE FEW /hpf (FEW); MUCUS,URINE FEW /hpf (FEW); RBC,URINE 0-5 /hpf (0-5); SQUAMOUS EPITHELIAL CELLS,UR 0-5 /hpf (0-5); WBC,URINE 0-5 /hpf (0-5)
[2023-01-19] MEDS: Acetaminophen/oxyCODONE 325-5 MG Tab PO PRN (22:06)
[2023-01-19] MEDS: Rosuvastatin 10 MG Tab PO SCH (22:09)
[2023-01-19] MEDS: Cefdinir 300 MG Cap PO SCH (22:09)
[2023-01-19] MEDS: Latanoprost 0.005% Ophth Soln 2.5 ML Bottle EYEBOTH SCH ×2 (22:19→22:26)
[2023-01-20] MEDS: Acetaminophen 325 MG Tab PO SCH ×3 (00:28→16:49)
[2023-01-20] MEDS: Levothyroxine 88 MCG Tab PO SCH (05:16)
[2023-01-20 05:53] LABS: ANION GAP 11.7 (5-15); BUN/CREATININE RATIO 21.3 (14-18); CALCIUM 9.3 mg/dL (8.5-10.1); CREATININE 0.8 mg/dL (0.55-1.02); EST CRCL DRUG DOSING (CG) 44.36 mL/min; MAGNESIUM 1.8 mg/dL (1.8-2.4); POTASSIUM,K 3.7 mEq/L (3.5-5.1)
[2023-01-20 05:58] LABS: BASOPHILS ABSOLUTE AUTO 0.01 K/mm3 (0.01-0.08); BASOPHILS PERCENT AUTO 0.1 % (0.1-1.2); EOSINOPHILS PERCENT AUTO 0 (0.7-5.8); HEMATOCRIT 39.4 % (34.1-44.9); HEMOGLOBIN 13.2 gm/dl (11.2-15.7); IMMATURE GRAN ABSOLUTE AUTO 0.02 K/mm3 (0.00-0.10); IMMATURE GRAN PERCENT AUTO 0.1 % (<=1.0); LYMPHOCYTES ABSOLUTE AUTO 0.57 K/mm3 (1.18-3.74); LYMPHOCYTES PERCENT AUTO 4.1 % (19.3-51.7); MEAN CORPUSCULAR HGB CONC 33.5 g/dl (32.2-35.5); MEAN CORPUSCULAR VOLUME 95.4 fl (79.4-94.8); MEAN PLATELET VOLUME 8.3 fl (9.4-12.3); MONOCYTES ABSOLUTE AUTO 0.18 K/mm3 (0.24-0.36); MONOCYTES PERCENT AUTO 1.3 % (4.7-12.5); NEUTROPHILS ABSOLUTE AUTO 13.19 K/mm3 (1.56-6.13); NEUTROPHILS PERCENT AUTO 94.4 % (34.0-71.1); RED BLOOD CELL COUNT 4.13 M/mm3 (3.98-5.22); WHITE BLOOD CELL COUNT,WBC 13.97 K/mm3 (3.98-10.04)
[2023-01-20 06:07] LABS: PLATELET COUNT,PLT 349 K/mm3 (182-369)
[2023-01-20 06:22] LABS: SLIDE REVIEW ABNORMAL SMEAR
[2023-01-20] MEDS: Albuterol/Ipratropium 3.0-0.5 MG/3 ML Neb Soln NEB SCH ×4 (06:46→20:37)
[2023-01-20] MEDS: Lidocaine 4% 1 each Patch TOP SCH (09:31)
[2023-01-20] MEDS: methylPREDNISolone Sodium Succinate 40 MG/1 ML SDV IVPUSH SCH ×2 (09:31→21:17)
[2023-01-20] MEDS: Enoxaparin 40 MG/0.4 ML Syringe SUBCUT SCH (09:31)
[2023-01-20] MEDS: Verapamil 120 MG Cap.ER PO SCH (09:32)
[2023-01-20] MEDS: Cefdinir 300 MG Cap PO SCH ×2 (09:32→21:17)
[2023-01-20] MEDS: Multivitamin Tab PO SCH (09:33)
[2023-01-20] MEDS: Tiotropium Bromide 4 GM Inhalation Spray (2.5mcg/1 dose; 10 doses) INH SCH (09:58)
[2023-01-20] MEDS: Azithromycin 500 MG in Sodium Chloride 0.9% 250 ML IV SCH (16:29)
[2023-01-20] MEDS: guaiFENesin 600 MG Tab.ER PO SCH ×2 (16:29→21:17)
[2023-01-20] MEDS: busPIRone 5 MG Tab PO SCH (21:17)
[2023-01-20] MEDS: Latanoprost 0.005% Ophth Soln 2.5 ML Bottle EYEBOTH SCH (21:17)
[2023-01-20] MEDS: Rosuvastatin 10 MG Tab PO SCH (21:17)
[2023-01-20] MEDS: Acetaminophen/oxyCODONE 325-5 MG Tab PO PRN (21:38)
[2023-01-21] MEDS: Acetaminophen 325 MG Tab PO SCH ×2 (01:33→08:33)
[2023-01-21] MEDS: Albuterol/Ipratropium 3.0-0.5 MG/3 ML Neb Soln NEB SCH ×2 (05:48→09:07)
[2023-01-21 06:00] LABS: BASOPHILS ABSOLUTE AUTO 0.01 K/mm3 (0.01-0.08); BASOPHILS PERCENT AUTO 0.1 % (0.1-1.2); EOSINOPHILS PERCENT AUTO 0 (0.7-5.8); HEMATOCRIT 39.8 % (34.1-44.9); HEMOGLOBIN 13.2 gm/dl (11.2-15.7); IMMATURE GRAN ABSOLUTE AUTO 0.06 K/mm3 (0.00-0.10); IMMATURE GRAN PERCENT AUTO 0.4 % (<=1.0); LYMPHOCYTES ABSOLUTE AUTO 0.68 K/mm3 (1.18-3.74); LYMPHOCYTES PERCENT AUTO 4.7 % (19.3-51.7); MEAN CORPUSCULAR HEMOGLOBIN 31.7 pg (25.6-32.2); MEAN CORPUSCULAR HGB CONC 33.2 g/dl (32.2-35.5); MEAN CORPUSCULAR VOLUME 95.7 fl (79.4-94.8); MEAN PLATELET VOLUME 8.2 fl (9.4-12.3); MONOCYTES ABSOLUTE AUTO 0.41 K/mm3 (0.24-0.36); MONOCYTES PERCENT AUTO 2.8 % (4.7-12.5); NEUTROPHILS ABSOLUTE AUTO 13.35 K/mm3 (1.56-6.13); PLATELET COUNT,PLT 396 K/mm3 (182-369); RED BLOOD CELL COUNT 4.16 M/mm3 (3.98-5.22); WHITE BLOOD CELL COUNT,WBC 14.51 K/mm3 (3.98-10.04)
[2023-01-21 06:07] LABS: ANION GAP 10.7 (5-15); BUN/CREATININE RATIO 24.3 (14-18); CALCIUM 9.2 mg/dL (8.5-10.1); CREATININE 0.7 mg/dL (0.55-1.02); EST CRCL DRUG DOSING (CG) 49.98 mL/min; MAGNESIUM 1.9 mg/dL (1.8-2.4); POTASSIUM,K 3.7 mEq/L (3.5-5.1)
[2023-01-21 06:26] LABS: SLIDE REVIEW ABNORMAL SMEAR
[2023-01-21] MEDS: Levothyroxine 88 MCG Tab PO SCH (06:52)
[2023-01-21] MEDS: Tiotropium Bromide 4 GM Inhalation Spray (2.5mcg/1 dose; 10 doses) INH SCH (08:06)
[2023-01-21] MEDS: Multivitamin Tab PO SCH (08:33)
[2023-01-21] MEDS: guaiFENesin 600 MG Tab.ER PO SCH (08:33)
[2023-01-21] MEDS: busPIRone 5 MG Tab PO SCH (08:33)
[2023-01-21] MEDS: Verapamil 120 MG Cap.ER PO SCH (08:34)
[2023-01-21] MEDS: Enoxaparin 40 MG/0.4 ML Syringe SUBCUT SCH (08:35)
[2023-01-21] MEDS: Lidocaine 4% 1 each Patch TOP SCH (08:35)
[2023-01-21] MEDS: Cefdinir 300 MG Cap PO SCH (08:35)
[2023-01-21 08:36] VITALS: BP 107/75; PULSE 78
[2023-01-21] MEDS: methylPREDNISolone Sodium Succinate 40 MG/1 ML SDV IVPUSH SCH (08:36)
== END 2023-01-21 12:15 | disposition home or self-care (01) | DRG 189 ==
LOC: JD.ED 10:04 → JD.MS 15:26
PROVIDERS: ADMIT Internal Medicine; ATTEND Internal Medicine
DX: J96.01 Acute respiratory failure with hypoxia (principal); R09.02 Hypoxemia; M54.50 Low back pain, unspecified; J44.1 Chronic obstructive pulmonary disease with (acute) exacerbation; J44.9 Chronic obstructive pulmonary disease, unspecified; D72.829 Elevated white blood cell count, unspecified; T38.0X5A Adverse effect of glucocorticoids and synthetic analogues, initial encounter; I10 Essential (primary) hypertension; E03.9 Hypothyroidism, unspecified; Z87.440 Personal history of urinary (tract) infections; F41.9 Anxiety disorder, unspecified; Z20.822 Contact with and (suspected) exposure to COVID-19; F32.A Depression, unspecified; E55.9 Vitamin D deficiency, unspecified; H54.7 Unspecified visual loss; E78.00 Pure hypercholesterolemia, unspecified; R39.15 Urgency of urination; R35.0 Frequency of micturition; Z79.52 Long term (current) use of systemic steroids; Z79.899 Other long term (current) drug therapy; Z79.890 Hormone replacement therapy; Z91.040 Latex allergy status; Z88.2 Allergy status to sulfonamides; Z88.0 Allergy status to penicillin; Z90.710 Acquired absence of both cervix and uterus; Z87.891 Personal history of nicotine dependence
CPT/HCPCS: 0241U; 36415; 71045; 72100; 80048; 80053; 81001; 83735; 85025; 86140; 86738; 87040; 87086; 94640; 94667; 94668; 94760; 94761; 97161; 99284; 99222; 99232; 99239; 99285; A9270-GY; J0456; J1650; J2920; J7050; J7620-GY